=== PATIENT | male | born 1990 | race Caucasian/White ===

== ENCOUNTER 2019-11-10 11:24 | Outpatient (REF) | payer OTHER, SELFPAY ==
[2019-11-10 18:55] LABS: Abs Immature Grans 0.01 k/cumm (0.0-0.09); Absolute Basophil Count 0.04 k/cumm (0.0-0.2); Absolute Eosinophil Count 0.05 k/cumm (0.0-0.7); Absolute Lymphocyte Count 1.61 k/cumm (1.2-3.4); Absolute Monocyte Count 0.66 k/cumm (0.11-0.7); Absolute Neutrophil Count 5.12 k/cumm (1.2-6.7); Basophils % 0.5; Eosinophils % 0.7; HCT 44.9 % (40.0-50.0); HGB 14.8 g/dL (13.5-17.5); Immature Grans % 0.1 %; Lymphocytes % 21.5; Mean Corpuscular Hemoglobin 28.4 pg (27.0-33.0); Mean Platelet Volume 11.9 fL (8.0-11.0); Monocytes % 8.8; Neutrophils % 68.4; Platelet Count 254 x1000/uL (130-400); RBC 5.22 m/cumm (4.50-6.00); RBC Distribution Width 13.5 % (11.8-14.1); White Blood Cell Count 7.49 k/cumm (4.4-10.8)
[2019-11-10 19:08] LABS: TSH (W/Ref FT4) 1.09 uIU/mL (0.36-3.74)
[2019-11-11 15:42] LABS: CRP, High Sensitivity 3.76 mg/L (See Note)
[2019-11-13 14:11] LABS: ANA Interpretation Negative (Negative)
== END 2019-11-10 11:44 ==
LOC: NCHCN 11:24
PROVIDERS: PCP Family Medicine; Visit Provider Physician Assistant Medical
DX: I88.9 Nonspecific lymphadenitis, unspecified (principal)
CPT/HCPCS: 86141; 84443; 85025; 86038

== ENCOUNTER 2019-11-26 10:29 | Outpatient (REF) | payer OTHER, SELFPAY ==
[2019-11-26 19:09] LABS: Anion Gap 8.9 mmol/L (3-11); BUN 13 mg/dL (7-18); CO2 26.1 mmol/L (21.0-32.0); Calcium 9.2 mg/dL (8.5-10.1); Chloride 103 mmol/L (98-107); Creatine Kinase 291 U/L (39-308); Glucose 93 mg/dL (74-106); Potassium 4.2 mmol/L (3.5-5.1); Sodium 138 mmol/L (136-145)
[2019-11-26 19:41] LABS: ESR 17 mm/hr (0-15)
[2019-11-27 16:13] LABS: Rheumatoid Factor <8.6 IU/mL (<12.0)
[2019-11-30 18:57] LABS: Anaplasma phagocytophilum Negative (Negative); B. miyamotoi PCR Negative (Negative); Babesia divergens/MO-1 Negative (Negative); Babesia duncani Negative (Negative); Babesia microti Negative (Negative); Ehrlichia chaffeensis Negative (Negative); Ehrlichia ewingii/canis Negative (Negative); Ehrlichia muris eauclairensis Negative (Negative)
[2019-12-01 11:10] LABS: Lyme Ab w Rflx to Lyme Confirm Negative (Negative)
== END 2019-11-26 10:49 ==
LOC: NCHCN 10:29
PROVIDERS: PCP Family Medicine; Visit Provider Family Medicine
DX: I73.00 Raynaud's syndrome without gangrene (principal); M25.50 Pain in unspecified joint
CPT/HCPCS: 80048; 82550; 85652; 87798; 86431; 86618

== ENCOUNTER 2020-08-23 09:49 | Outpatient (CLI) | payer OTHER, SELFPAY ==
[2020-08-24 01:23] LABS: COVID-19 RT-PCR UVMMC Result Negative (Negative)
== END 2020-08-23 10:09 ==
PROVIDERS: PCP Family Medicine; Visit Provider Nurse Practitioner Family
DX: Z11.52 Encounter for screening for COVID-19 (principal)
CPT/HCPCS: U0003

== ENCOUNTER 2020-09-30 13:03 | Outpatient (REF) | payer OTHER, SELFPAY ==
[2020-10-03 15:27] LABS: Chlamydia Result Negative (Negative); GC Result Negative (Negative)
== END 2020-09-30 13:04 | disposition home or self-care (01) ==
LOC: NCHCN 13:03
PROVIDERS: PCP Family Medicine; Visit Provider Nurse Practitioner Family
DX: N50.811 Right testicular pain (principal)
CPT/HCPCS: 87491; 87591

== ENCOUNTER 2021-04-24 10:46 | Outpatient (CLI) | payer OTHER, SELFPAY ==
[2021-04-25 01:59] LABS: COVID-19 RT-PCR UVMMC Result Negative (Negative)
== END 2021-04-24 10:47 | disposition home or self-care (01) ==
LOC: LBO 11:03
PROVIDERS: PCP Family Medicine; Visit Provider Nurse Practitioner Family
DX: Z20.822 Contact with and (suspected) exposure to COVID-19 (principal)
CPT/HCPCS: U0003

== ENCOUNTER 2021-06-27 09:42 | Outpatient (CLI) | payer OTHER, SELFPAY ==
[2021-06-28 12:50] LABS: COVID-19 RT-PCR UVMMC Result Negative (Negative)
== END 2021-06-27 09:43 | disposition home or self-care (01) ==
LOC: LBO 09:43
PROVIDERS: PCP Family Medicine; Visit Provider Physician Assistant Medical
DX: Z20.822 Contact with and (suspected) exposure to COVID-19 (principal)
CPT/HCPCS: U0003

== ENCOUNTER 2022-09-26 11:12 | Outpatient (REF) | payer OTHER, SELFPAY ==
[2022-09-26 12:45] LABS: Abs Immature Grans 0.01 10^3/uL (0.0-0.06); Absolute Basophil Count 0.06 10^3/uL (0.0-0.2); Absolute Eosinophil Count 0.07 10^3/uL (0.0-0.7); Absolute Lymphocyte Count 1.11 10^3/uL (1.2-3.4); Absolute Monocyte Count 0.54 10^3/uL (0.1-0.8); Absolute Neutrophil Count 4.31 10^3/uL (1.2-6.7); Eosinophils % 1.1; HGB 14.4 g/dL (13.5-17.5); Immature Grans % 0.2; Lymphocytes % 18.2; MCHC 32.7 % (32.0-36.0); MCV 85 fL (80-95); MPV 11.3 fL (8.0-11.0); Monocytes % 8.9; Neutrophils % 70.6; Platelet Count 224 10^3/uL (130-400); RBC 5.15 10^6/uL (4.36-5.78); RDW 13.1 % (11.8-14.1); RDW-SD 40.6 fL
[2022-09-26 12:55] LABS: ALT 60 U/L (16-63); AST 30 U/L (15-37); Albumin 4.4 g/dL (3.4-5.0); Alkaline Phosphatase 87 U/L (46-116); Anion Gap 7.5 mmol/L (3-11); BUN 13 mg/dL (7-18); Bilirubin, Total 0.5 mg/dL (0.2-1.0); CO2 29.5 mmol/L (21.0-32.0); CREATININE 0.9 mg/dL (0.70-1.30); Calcium 9.2 mg/dL (8.5-10.1); Chloride 104 mmol/L (98-107); Estimated GFR 116.37 (mL/min/1.73m2); Glucose 88 mg/dL (74-106); Potassium 4.2 mmol/L (3.5-5.1); Sodium 141 mmol/L (136-145); Total Protein 8.3 g/dL (6.4-8.2)
== END 2022-09-26 11:13 | disposition home or self-care (01) ==
LOC: LBN 11:12
PROVIDERS: PCP Nurse Practitioner Adult Health; Visit Provider Physician Assistant
DX: R10.32 Left lower quadrant pain (principal)
CPT/HCPCS: 80053; 85025

== ENCOUNTER 2022-10-18 03:56 | Outpatient (CLI) | payer OTHER, SELFPAY ==
--- NOTE | 2022-10-18 07:45 | DI.RAD_ITS ---
Exam(s) XR CERVICAL SPINE COMP 4-5V EXAM: XR CERVICAL SPINE COMP 4-5V CLINICAL HISTORY: Assess c-spine bony alignment; +L facial pain,RADICULAR PAIN,R51.9,M54.10. TECHNIQUE: 2D digital imaging was performed. Eight images were obtained. AP, odontoid, lateral and b ilateral oblique images were obtained. COMPARISON: No exams were available for comparison FINDINGS: The odontoid is intact. The lateral masses are well aligned. There is straightening of the normal ce rvical lordosis. The vertebral bodies, disc spaces and posterior elements are well maintained. No a cute fracture or subluxation is present. No significant neural foraminal stenosis is present. The ce rvical thoracic junction is well maintained. The prevertebral soft tissues are unremarkable. Lung ap ices are clear. IMPRESSION: Unremarkable radiographs of the cervical spine. DATA REPOSITORY: RADIATION DOSE DELIVERED:
== END 2022-10-18 04:16 ==
LOC: DI 03:56
PROVIDERS: PCP Nurse Practitioner Adult Health; Visit Provider Nurse Practitioner Adult Health
DX: R51.9 Headache, unspecified (principal); M54.12 Radiculopathy, cervical region
CPT/HCPCS: 72050

== ENCOUNTER 2022-12-10 02:50 | Outpatient (CLI) | payer OTHER, SELFPAY ==
[2022-12-10 07:14] LABS: HCT 45.3 % (40.0-50.0); MCHC 33.1 % (32.0-36.0); MCV 88 fL (80-95); MPV 10.9 fL (8.0-11.0); Platelet Count 223 10^3/uL (130-400); RBC 5.18 10^6/uL (4.36-5.78); RDW 12.8 % (11.8-14.1); RDW-SD 40.9 fL; WBC 5.55 10^3/uL (4.4-10.8)
[2022-12-10 07:26] LABS: ESR 9 mm/hr (0-15)
[2022-12-10 08:47] LABS: ALT 49 U/L (16-63); AST 26 U/L (15-37); Alkaline Phosphatase 85 U/L (46-116); Anion Gap 8.6 mmol/L (3-11); BUN 12 mg/dL (7-18); Bilirubin, Total 0.6 mg/dL (0.2-1.0); CO2 30.4 mmol/L (21.0-32.0); CREATININE 1.1 mg/dL (0.70-1.30); Calcium 9.1 mg/dL (8.5-10.1); Calculated LDL 124 mg/dL (<100); Chloride 104 mmol/L (98-107); Cholesterol 177 mg/dL (<200); Estimated GFR 91.47 (mL/min/1.73m2); Folate 18.5 ng/mL (8.6-20.0); Glucose 106 mg/dL (74-106); HDL Cholesterol 39 mg/dL (40-60); Potassium 4.3 mmol/L (3.5-5.1); Sodium 143 mmol/L (136-145); TSH (W/Ref FT4) 1.07 uIU/mL (0.36-3.74); Total Protein 8.5 g/dL (6.4-8.2); Triglyceride 72 mg/dL (<150); Vitamin B12 490 pg/mL (193-986)
[2022-12-10 09:00] LABS: C-Reactive Protein 0.56 mg/dL (0.0-0.3); Creatine Kinase 126 U/L (39-308)
[2022-12-10 17:48] LABS: Rheumatoid Factor <8.6 IU/mL (<12.0)
[2022-12-10 17:50] LABS: Lab Add On Test DONE
[2022-12-10 18:33] LABS: Hemoglobin A1C 5.5 % (<5.7)
[2022-12-11 10:00] LABS: HIV-1/2 Ag & Ab Screen Negative (Negative)
[2022-12-11 10:17] LABS: Cyclic Citrullinated Peptide <2.5 U/mL (<5.0)
[2022-12-11 10:21] LABS: Hepatitis C Ab w Rflx HCV PCR Negative (Negative)
[2022-12-11 11:05] LABS: Lyme Ab w Rflx to Lyme Confirm Positive (Negative)
[2022-12-11 15:21] LABS: Lyme IgG Ab Negative (Negative); Lyme IgM Ab Negative (Negative)
[2022-12-13 23:25] LABS: Anaplasma phagocytophilum Negative (Negative); B. miyamotoi PCR Negative (Negative); Babesia divergens/MO-1 Negative (Negative); Babesia duncani Negative (Negative); Babesia microti Negative (Negative); Ehrlichia chaffeensis Negative (Negative); Ehrlichia ewingii/canis Negative (Negative); Ehrlichia muris eauclairensis Negative (Negative)
== END 2022-12-10 02:51 | disposition home or self-care (01) ==
PROVIDERS: PCP Nurse Practitioner Adult Health; Referring Provider Nurse Practitioner Adult Health; Visit Provider Nurse Practitioner Adult Health
DX: I73.00 Raynaud's syndrome without gangrene (principal); M25.50 Pain in unspecified joint; M79.10 Myalgia, unspecified site; Z11.4 Encounter for screening for human immunodeficiency virus [HIV]; Z11.59 Encounter for screening for other viral diseases; Z13.1 Encounter for screening for diabetes mellitus; Z13.220 Encounter for screening for lipoid disorders; Z83.2 Family history of diseases of the blood and blood-forming organs and certain disorders involving the immune mechanism; R73.01 Impaired fasting glucose
CPT/HCPCS: 36415; 80053; 80061; 82550; 85027; 85652; 86200; 86617; 86803; 87389; 87798; 82607; 82746; 83036; 84443; 86140; 86431; 86618

== ENCOUNTER 2023-04-24 09:22 | Outpatient (CLI) | payer OTHER, SELFPAY ==
[2023-04-29 14:36] LABS: Testosterone, Total 482 ng/dL (240-950)
== END 2023-04-24 09:23 | disposition home or self-care (01) ==
LOC: LBO 09:24
PROVIDERS: PCP Nurse Practitioner Adult Health; Visit Provider Urology
DX: R53.83 Other fatigue (principal); N50.812 Left testicular pain
CPT/HCPCS: 36415; 84403

== ENCOUNTER 2023-12-18 07:19 | Day surgery (SDC) | payer OTHER, SELFPAY ==
--- NOTE | 2023-12-17 20:24 | W.PM.DSUDISC ---
Date of service: 12/18/23 Time of Service: 11:05 Discharge Plan Disposition Patient Disposition: Home Condition: Good Discharge Details Reason For Visit: Bilateral inguinal hernia repair Attending Provider: Nathaniel Zamudio Primary Care Provider: Yadira Heller Home Meds and New Rx's Prescriptions: New tramadol 50 mg tablet 50 mg PO Q8H PRNQty: 12 0RF Rx Instructions: Take 1 to 2 tablets by mouth as needed for more intense pain Continued loratadine 10 mg tablet 10 mg PO DAILY PRN (Reason: allergy symptoms) Qty: 60 0RF Rx Instructions: Allergy symptoms Discharge Instructions Instructions: Inguinal Hernia Repair (GEN) Additional Instructions: Tray, we were able to repair your hernia today just like we talked about. As expected, the hernia on the right was a little bit larger than the left, but implantation of the mesh on both sides went very smoothly. As we talked about beforehand, expect to have pain over the surgical sites, and perhaps down into your scrotum over the next few days. He typically gets a little worse after you get home as some of the nerve block wears off, but should start to improve thereafter. Ice packs over the area can be quite helpful. You should alternate Tylenol and ibuprofen [id number], and use the prescription for tramadol if you need that for more intense pain. Do not be alarmed if you develop bruising over the incision sites, that extends down into the scrotum. That is extremely common. You can also have a fair amount of swelling around the penis and the testicles when both sides are operated on that same time. Hopefully this will not affect you too much, but I do see it very frequently. If you notice a lot of swelling, wearing a supportive underwear or jockstrap, and trying to get off your feet from time to time laying mostly flat should help with the swelling. If you need anything at all or have any questions at any time, please do not hesitate to ask. Otherwise I look forward to seeing you in the office. 1. Resume all of your medications. 2. Alternate heating pads and ice packs as needed for pain. 3. Alternate over the counter tylenol and ibuprofen every 6 hours for 2 days, then switch to as needed. Use tramadol if needed for more severe pain. 4. Leave bandages in place for 24 hours, then remove. 5. Shower with warm soapy water. Pat dry. Use a bandaid if needed to protect your clothing. 6. No soaking or tub baths until I see you in the office. 7. No heavy lifting until I see you in the office. 8. Call the office (or go directly to the emergency room after hours) if you notice any of the following: Develop chills (warm to touch), or if you have a thermometer and your temperature is above 101 Difficulty breathing or difficultly swallowing Persistent vomiting Any bleeding ? exceeding one tablespoon 9. Call your physician if the site where your intravenous was started becomes red, swollen, painful, and warm to touch. Referrals: Nathaniel Zamudio MD [ [facility] STAFF PHYSICIAN] - Activity:: no heavy lifting Remove Dressings/Wound Care:: 24 hours Shower/Bathe:: 24 hours Diet:: As Tolerated Discharge Orders Discharge Orders: Discharge Order (Routine); Ordered 12/17/23 Ordered By: Nathaniel Zamudio DS: Diagnosis Discharge Diagnosis (1) Bilateral inguinal hernia: Status: Acute Asessment and Plan: Postoperative follow-up care in the office
--- NOTE | 2023-12-17 20:28 | W.PREOPHP ---
Assessment and Plan Assessment and plan (1) Bilateral inguinal hernia: Status: Acute Assessment and plan: We reviewed the plan for open bilateral inguinal hernia repairs with implantation of permanent mesh once again today. He has no other questions. We can proceed as planned. History of Present Illness History of Present Illness Chief Complaint: inguinal hernias Narrative: Tray is 33 years old. He has been experiencing intermittent groin pain for the past year and a half. It actually started on the left side, but more recently has become much more pronounced and noticeable on the right side. He underwent an ultrasound that confirmed the presence of a right-sided inguinal hernia. On physical exam, there is evidence of left-sided hernia as well. He is interested in open bilateral inguinal hernia repairs. Since his last office visit he has been doing pretty well. He has had a little more pain, especially with prolonged vehicle travel on the right side. Otherwise there is been no other significant interval changes to the history and the physical exam. PFSH All Active Problems Bilateral inguinal hernia (Acute) Inguinal hernia of right side without obstruction or gangrene (Acute) Right groin pain (Acute) Left varicocele (Acute) Fatigue (Acute) Recurrent canker sores (Acute) Impaired fasting glucose (Acute ~11/2022) A1C 5.5% Family history of autoimmune disorder (Acute) Polyarthralgia (Acute) Raynaud's phenomenon (Acute ~10/2019) ?--without discoloration Myalgia (Acute) Medical History Pilonidal cyst Managed nonsurgical at [facility] with Hyacinth Ivy (drained) Epididymitis Dysuria Surgical History [place] teeth removed (~2017) Dr. Madsen Family History Father Asthma Glaucoma Paternal Grandmother Cancer Diabetes Maternal Uncle Hypertension Rheumatoid arthritis Maternal Aunt Lupus Maternal Grandmother Leukemia Mother CREST syndrome Social History Smoking/Tobacco Use Status: Never Smoking risk assessment performed?: Yes Alcohol Intake: current Alcohol Intake frequency: a few times a week Drug use: Never Substance use type: does not use Adopted: No Caregiver/Support person: No Foster care: No Household members: spouse Housing: house Number of Children: 0 number of grandchildren: 0 Communication Needs: Corrective Lenses Education Level: high school Do you need help understanding health information?: Never 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 [employer] Pets and animals: Yes Pets and animals: cat(s) Sexually active: Yes Do you think of yourself as: straight/heterosexual Current gender identity: male What is your relationship status?: How often do you talk on the phone with friends or family?: three or more times per week How often do you get together with friends or relatives?: twice per week Do you belong to any clubs or organized social groups?: no Panel score (0-1 are the most socially isolated patients): 2 What type of physical activity do you participate in: regular exercise Frequency: daily Shea/Synagogue: None Special shea needs: No Seatbelt use: always Helmet use: Yes Helmet use: always Drive intox or ride w/intox school bus driver/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 assistant: No Do you feel safe at home: Yes Do you feel safe in your relationship?: Yes Meds Allergies and Home Medications Allergies Allergy/AdvReac Type Severity Reaction Status Date / Time No Known Allergies Allergy Verified 12/18/23 07:37 Home Medications Medication Instructions Recorded Confirmed Type loratadine 10 mg tablet 10 mg PO DAILY PRN allergy 09/19/22 12/18/23 Rx symptoms #60 tabs Exam Const General: cooperative, healthy appearing and not in acute distress Neck Neck: normal visual inspection, no lymphadenopathy and supple Thyroid: thyroid normal Resp Effort & Inspection: normal respiratory effort Auscultation: clear to auscultation bilaterally Cardio Jugular venous pressure: no JVD Rate: regular rate Rhythm: regular rhythm Heart Sounds: S1 normal and S2 normal GI Inspection: normal to inspection Palpation: soft, no guarding, hernia (Bilateral inguinal) and nontender Percussion: normal to percussion Auscultation: normal bowel sounds Neuro General: patient alert, patient awake and patient oriented x3 Psych Appearance: grossly normal
--- NOTE | 2023-12-17 20:28 | W.PM.OP ---
Date of service: 12/18/23 Time of Service: 11:10 Operative Note Operative Note DATE OF PROCEDURE: 12/18/23 PRE-OP DIAGNOSIS: Bilateral inguinal hernia POST-OP DIAGNOSIS: same PROCEDURE: Open bilateral inguinal hernia repairs with permanent mesh SURGEON: Nathaniel Zamudio DISTRIBUTION SPECIALIST: Qing Gonsalez ANESTHESIA TYPE: Local By Surgeon, General LMA/ETT and Other (Bilateral inguinal tap blocks) Refer to Anesthesia Record ESTIMATED BLOOD LOSS: 25 PATHOLOGY: none sent COMPLICATIONS: None Patient was transported to: PACU Patient's condition: stable Implants: Bard PerFix light mesh plug and patch bilaterally Indications: Tray is a 33-year-old male with symptomatic bilateral inguinal hernias Findings: Bilateral indirect inguinal hernias Procedure Description: I began by confirming the bilateral nature of the operation with the patient. Both groins were marked. Next, after induction of general anesthesia bilateral inguinal tap blocks were performed under real-time ultrasound guidance by the anesthesia team. Both groins were then prepped and draped. A towel was used to block off the left side this I elected to begin on the right. I began by making an oblique incision over the right inguinal region. I dissected down through the skin to the deep fascia. Next, I incised the fascia along the length of the inguinal canal to the external ring. I then carefully identified the ilioinguinal nerve and . Once this was complete, I bluntly dissected the shelving edge of the inguinal ligament down towards the pubic tubercle. Here, I encircled all cord structures with a [place] drain. Next, I began dissecting the specific cord structures. Great care was taken to spare the vas deferens and the blood supply to the testicle. Next, I isolated the hernia sac from the other inguinal structures. I reduced it back to its normal anatomic position. This was an indirect inguinal hernia. I then used a large PerFix light mesh plug to obliterate the defect at the internal ring. I fixed in place with interrupted Prolene stitches. Next, I buttressed the posterior floor of the inguinal canal with a large mesh patch. I started by fixing it to the pubic tubercle. Next, I used Prolene sutures to affix it to the shelving edge of the inguinal ligament and the conjoined tendon. Laterally I tacked it to the internal oblique fascia and reconstructed an internal ring without any strain on the cord structures. Once this was complete, I irrigated the surgical field. It appeared hemostatic. I then closed the anterior portion of the fascia to reconstruct the front wall of the inguinal canal. I did this with interrupted Vicryl stitches. Once again, I irrigated the surgical field and inspected for hemostasis. Finally, I approximated the superficial fascia and the deep layers of the skin with absorbable suture. Skin was closed with running subcuticular stitches. The right side was then covered, and I turned my attention to the left groin. I mirrored the incision from the right side, and dissected down to the fascia as described above. Inguinal canal was opened along its length to the external ring. Again, in a fashion identical to the right side, I dissected out the cord structures, and then an indirect inguinal hernia on this side as well. This was also reduced with closure of the internal ring using a large PerFix light plug. The plug was affixed in place using the same technique as the right. Similarly, a large mesh patch was tailored to size, and secured in place with running Prolene suture. Again, the site was examined and appeared hemostatic. The canal was reconstructed with running Vicryl sutures, and the skin was then closed in multiple layers as described on the right side. Bandages were then applied both sides, the patient was allowed to wake from anesthesia and transferred to the recovery unit.
[2023-12-18] VITALS (10 sets, daily range): BP systolic 99–158; BP diastolic 40–89; PULSE 61–81; RESP 12–20; TEMP 36.3–36.7; O2SAT 94–99; BMI 35.9
--- NOTE | 2023-12-18 06:21 | ANES.PREOP_ITS ---
General Info Date of Service Date Performed: 12/18/23 Height: 5 ft 10 in Weight: 113.398 kg Body Mass Index (BMI): 35.9 Surgical Procedure: Operation Date: 12/18/23 09:55 Proposed Procedure Side Surgeon p Herniorrhaphy Inguinal w/Mesh Bilateral Nathaniel Zamudio MD Meds Allergies and Home Medications Allergies Allergy/AdvReac Type Severity Reaction Status Date / Time No Known Allergies Allergy Verified 12/18/23 07:37 Home Medication Medication Instructions Recorded loratadine 10 mg tablet 10 mg PO DAILY PRN allergy 09/19/22 symptoms #60 tabs Current Visit Medications: Current Medications Generic Name Dose Route Start Last Admin Trade Name Freq PRN Reason Stop Dose Admin Acetaminophen 1,000 mg 12/18/23 06:00 Acetaminophen 500 Mg Tab PO 12/18/23 23:59 PREOP DANYA Celecoxib 200 mg 12/18/23 06:00 Celecoxib 200 Mg Cap PO 12/18/23 23:59 PREOP DANYA Gabapentin 600 mg 12/18/23 06:00 Gabapentin 300 Mg Cap PO 12/18/23 23:59 PREOP DANYA Hydromorphone HCl 0.2 mg 12/17/23 20:29 Hydromorphone 2 Mg/Ml Syr IVP 01/16/24 20:28 Q1H PRN PRN Ringer's Solution 1,000 mls @ 80 mls/hr 12/18/23 06:00 IV 12/18/23 23:59 INFUSION DANYA Cefazolin Sodium/Dextrose 2 gm in 50 mls @ 100 mls/hr 12/18/23 06:00 Ancef Duplex IVPB 12/18/23 23:59 PREOP DANYA IV Miscellaneous Supplies 1 each 12/18/23 06:00 Iv Access IV 12/18/23 23:59 DIRECTED DANYA Sodium Chloride 0 ml 12/18/23 06:00 Normal Saline Flush 10 Ml Syr IV 12/18/23 23:59 PRN PRN Sodium Chloride 0 ml 12/18/23 06:00 Normal Saline 10 Ml Vial IJ 12/18/23 23:59 DIRECTED PRN Sterile Water 0 ml 12/18/23 06:00 Water,Injection,Sterile 10 Ml Vial IJ 12/18/23 23:59 DIRECTED PRN Tramadol HCl 100 mg 12/17/23 20:29 Tramadol 50 Mg Tab PO 01/16/24 20:28 Q6H PRN PRN Pain PFSH Active Problems Active Problems: Problem Status Onset Code Bilateral inguinal hernia K40.20 Inguinal hernia of right side without obstruction or gangrene K40.90 Right groin pain R10.31 Left varicocele I86.1 Fatigue R53.83 Recurrent canker sores K12.0 Impaired fasting glucose ~11/2022 R73.01 Family history of autoimmune disorder Z83.2 Polyarthralgia M25.50 Raynaud's phenomenon ~10/2019 I73.00 Myalgia M79.10 Medical History Medical History Pilonidal cyst Managed nonsurgical at [facility] with Hyacinth Ivy (drained) Epididymitis Dysuria Surgical History Surgical History [place] teeth removed (~2016) Dr. Madsen Tobacco Smoking/Tobacco Use Status: Never Passive smoking exposure: No Alcohol Alcohol Intake: current Alcohol intake frequency: a few times a week Substance Use Substance use: Never Substance use type: does not use Vital Signs and Lab Results Vital Signs Most Recent Vital Signs in EMR: Temp Pulse Resp BP Pulse Ox 36.6 C 76 18 158/89 H 99 12/18/23 07:39 12/18/23 07:39 12/18/23 07:39 12/18/23 07:39 12/18/23 07:39 Lab Results Blood Type / Crossmatch: No Data to Display Complete Blood Count: No Data to Display Complete Metabolic Panel: No Data to Display Liver Function Panel: No Data to Display Coagulation Panel: No Data to Display Cardiac Panel: No Data to Display Arterial Blood Gas: No Data to Display Venous Blood Gas: No Data to Display Pancreas Panel: No Data to Display Thyroid Panel: No Data to Display Infectious Disease: No Data to Display Blood Cultures: No Data to Display Toxicology Panel: No Data to Display Anesthesia Assessment and Plan Anesthesia History Personal History: No History of Anesthesia Complications Family History: No Family History of Anesthesia Complications Exercise Tolerance Exercise Tolerance: Metabolic Equivalents>4 Cardiac & Pulmonary Exam Cardiac Exam: Normal S1/S2 Heart Sounds Pulmonary Exam: Clear Bilateral Breath Sounds Implantable Cardiac Device Does patient have a Pacemaker or an ICD?: No Airway Exam Known Difficult Airway: No Mallampati Class: 3 Mouth Opening: Normal (> 3cm) Thyromental Distance: Greater than 3 cm Neck Range of Motion: Full ROM Neck Circumference: Thick Teeth Condition: Normal Dentition ASA Classification ASA Score: ASA 2 Emergency Case?: No NPO Status NPO Status: NPO Clears >2 hours, Solids >8 hours Anesthesia Plan Resuscitation Status: Full Code Anesthesia Technique: General Anesthesia Airway Planned: LMA Pain Management: Surgeon and patient request nerve block Monitors Used: Standard Monitors Preoperative Comments:: 33 yo male for bilateral open inguinal hernia repairs. Sig PMHx: Raynaud's (mostly feet in the winter), polyarthralgia, never smoker, occ etoh.
[2023-12-18] MEDS: Acetaminophen 500 MG TAB 1000 MG PO (07:54)
[2023-12-18] MEDS: Celecoxib 200 MG CAP PO (07:54)
[2023-12-18] MEDS: Gabapentin 300 MG CAP 600 MG PO (07:54)
[2023-12-18] MEDS: Lactated Ringers 1,000 ML 80 ML IV (08:22)
[2023-12-18] MEDS: ceFAZolin 2 GM/50 ML BAG IVPB (09:11)
--- NOTE | 2023-12-18 09:38 | W.ANESNERVE ---
Nerve Block Single Injection Procedure Date and Time Date Performed: 12/18/23 Procedure Start: 09:20 Location Where Procedure Performed Procedure Location: Operating Room Procedure Stop: 09:30 Reason Performed: Postoperative Analgesia Requesting Provider: Nathaniel Zamudio Timeout Performed Timeout Performed: No Monitoring Used ECG, Blood Pressure, SpO2 and ETCO2 Sterility Sterility: Hand Hygiene, Surgical Cap, Surgical Mask, Sterile Gloves and Chlorhexidine Sedation Given During Procedure Sedation Given (Indicate Dose Given): No Sedation given Patient Mental Status Patient Mental Status: Performed under general anesthesia Nerve Block 1st Nerve Block: Laterality: Bilateral Block Type: TAP Bilateral Ultrasound Image Saved?: Yes Needle / Catheter Used: 100mm SonoPlex II Local Anesthetic Bolus (Indicate Dose Given): Bupivacaine 0.25% Dose:: 30 mL Additives (Indicate Dose Given): Epinephrine to make 1:200,000 (5mcg/ml) Dose:: 150 mcg and Precedex Dose:: 40 mcg Ultrasound: Sterile probe cover and gel used Nerve Stimulator: Not Used Paresthesia: None Procedure Tolerated: No Complications Procedure Outcome: Successful Performed By: Main Ren
[2023-12-18] MEDS: Bupivacaine 0.5% Pres-Free W/EPI 30 ML VIAL (09:48)
--- NOTE | 2023-12-18 11:46 | W.ANESPOSTOP ---
Postoperative Evaluation Date, Time and Location Date Performed: 12/18/23 Time Performed: 11:46 Patient Location: PACU Vital Signs Most Recent Imported Vital Signs: Most Recent Vital Signs Temp Pulse Resp BP Pulse Ox 36.6 C 65 20 100/41 L 98 12/18/23 11:38 12/18/23 11:38 12/18/23 11:38 12/18/23 11:38 12/18/23 11:38 Pain Score Most Recent Pain Score: Most Recent Pain Score Pain Level 0 12/18/23 07:39 Assessment Mental Status: Arousable with meaningful communication Airway and Respiratory Function: Patent airway with normal (patient baseline) respiratory exam Cardiovascular Function: Hemodynamically Stable Hydration Status: Adequately Hydrated Nausea & Vomiting: No Nausea or Vomiting Pain: Pain is tolerable per patient Peripheral Nerve Block: Regional nerve block not resolved at time of post operative discharge
[2023-12-18] MEDS: traMADol 50 MG TAB 100 MG PO (12:50)
== END 2023-12-18 16:53 | disposition home or self-care (01) ==
LOC: SUR 07:20
PROVIDERS: PCP Nurse Practitioner Adult Health; Visit Provider Surgery
PROC: (CPT 49505; principal; 2023-12-18 09:45)
DX: K40.20 Bilateral inguinal hernia, without obstruction or gangrene, not specified as recurrent (principal)
CPT/HCPCS: 49505; 76942; C1781; J0171; J0665; J0690; J1100; J1805; J1885; J2001; J2250; J2405; J2704; J3475

== ENCOUNTER → 2024-01-06 16:42 | Outpatient (CLI) | payer OTHER, SELFPAY ==
--- NOTE | 2024-01-06 15:15 | DI.RAD_ITS ---
Exam(s) XR CHEST 2V PA LATERAL EXAM: XR CHEST 2V PA LATERAL CLINICAL HISTORY: evalutae pathology R05.9 COUGH. TECHNIQUE: 2D digital imaging was performed. COMPARISON: No exams were available for comparison FINDINGS: 2 views: Heart size is normal. The mediastinum is not widened. Lungs are clear. No infiltrates nor pleural effusions. IMPRESSION: No acute pulmonary findings. DATA REPOSITORY: RADIATION DOSE DELIVERED:
== END ==
PROVIDERS: PCP Nurse Practitioner Adult Health; Visit Provider Nurse Practitioner Family
DX: R05.8 Other specified cough (principal)
CPT/HCPCS: 71046

== ENCOUNTER 2024-03-23 09:03 | Emergency (ER) | payer OTHER, SELFPAY ==
[2024-03-23] VITALS (28 sets, daily range): BP systolic 119–157; BP diastolic 72–92; PULSE 63–87; RESP 14–24; TEMP 36.5–36.8; O2SAT 96–100
--- NOTE | 2024-03-23 09:00 | RT.EKG_ITS ---
APPROVED REPORT Exam: Resting ECG Reason for Exam: palpitations Patient Location: E HR:89 bpm ECG Measurements Heart Rate 89 AXIS LA 141 P 36 QRSd 89 QRS 23 QT 360 T 42 QTc 438 Conclusion Sinus rhythm...normal P axis, V-rate 60- 99 ST elev, probable normal early repol pattern...ST elevation, age<55 sinus nromal axis, J point early repol
--- NOTE | 2024-03-23 09:21 | ED.GENADUL_ITS ---
Discharge Plan Disposition Patient Disposition: Home Condition: Improving Discharge Details Chief Complaint: Palpitatns Clinical Impression: Heart palpitations Primary Care Provider: Yadira Heller ED Provider: Garrett Espinal Home Meds and New Rx's Prescriptions: No Action fluticasone propion-salmeterol [Advair Diskus] 250-50 mcg/dose blister with device 1 inh inhalation BID Qty: 60 1RF Rx Instructions: Rinse after use loratadine 10 mg tablet 10 mg PO DAILY PRN (Reason: allergy symptoms) Qty: 60 0RF Rx Instructions: Allergy symptoms albuterol sulfate 90 mcg/actuation HFA aerosol inhaler 2 puff inhalation Q6H PRN (Reason: shortness of breath or wheezing) Qty: 6.7 0RF (DME) Aerochamber MV Spacer See Rx Instructions .Route Qty: 1 0RF Rx Instructions: As directed Discharge Instructions Instructions: Palpitations Additional Instructions: Please follow-up with cardiology and your primary care physician. Cardiology team will be arranging Holter monitor. Return to the emergency department for any worsening symptoms HPI General Date/Time Provider Initiated Documentation: 03/23/24 09:13 . HPI Narrative: 34-year-old male presents with increased palpitations some chest pressure sensation and shortness of breath over the last couple of weeks. Has been initiated on fluticasone and albuterol for suspected asthma. Patient did have a case of bronchitis following a hernia surgery within the last couple of months. Denies leg pain or swelling. Denies history of coronary disease or thromboembolic disease. Related Data Home Medications ?Medication ?Instructions ?Recorded ?Confirmed loratadine 10 mg tablet 10 mg PO DAILY PRN allergy 09/19/22 03/23/24 symptoms #60 tabs albuterol sulfate 90 mcg/actuation 2 puff inhalation Q6H PRN 01/06/24 03/23/24 aerosol inhaler shortness of breath or wheezing #6.7 grams inhalational spacing device #1 ea 01/06/24 03/23/24 (Aerochamber MV spacer) fluticasone 250 mcg-salmeterol 50 1 inh inhalation BID #60 ea 03/19/24 03/23/24 mcg/dose blistr powdr for inhalation (Advair Diskus) Previous Rx's ?Medication ?Instructions ?Recorded loratadine 10 mg tablet 10 mg PO DAILY PRN allergy 09/19/22 symptoms #60 tabs albuterol sulfate 90 mcg/actuation 2 puff inhalation Q6H PRN 01/06/24 aerosol inhaler shortness of breath or wheezing #6.7 grams inhalational spacing device #1 ea 01/06/24 (Aerochamber MV spacer) fluticasone 250 mcg-salmeterol 50 1 inh inhalation BID #60 ea 03/19/24 mcg/dose blistr powdr for inhalation (Advair Diskus) Allergies Allergy/AdvReac Type Severity Reaction Status Date / Time No Known Allergies Allergy Verified 03/23/24 09:07 General Stated Complaint: Palpitatns LEYDA: 3 Exam Narrative Exam Narrative: Alert oriented interactive Resting comfortably no acute distress Lungs clear bilaterally speaking full sentences No peripheral edema Alert oriented moving all extremities no focal deficits Course Vital Signs Vital signs: Vital Signs Temperature 36.5 C 03/23/24 09:05 Pulse 87 03/23/24 09:05 Respiratory Rate 18 03/23/24 09:05 Blood Pressure 157/92 H 03/23/24 09:05 Pulse Oximetry 99 03/23/24 09:05 Temperature 36.5 C 03/23/24 09:05 Temperature Source Skin 03/23/24 09:05 Pulse 87 03/23/24 09:05 Respiratory Rate 18 03/23/24 09:05 Respiratory Effort Normal, Non-Labored 03/23/24 09:08 Blood Pressure 157/92 H 03/23/24 09:05 Blood Pressure Position Sitting 03/23/24 09:05 Pulse Oximetry 99 03/23/24 09:05 Oxygen Delivery Method Room Air 03/23/24 09:05 Oxygen Flow Rate 0 03/23/24 09:05 Pain Level 0 03/23/24 09:05 Medical Decision Making 34-year-old male presents with increased palpitations some chest pressure sensation and shortness of breath over the last couple of weeks. Has been initiated on fluticasone and albuterol for suspected asthma. Patient did have a case of bronchitis following a hernia surgery within the last couple of months. Denies leg pain or swelling. Denies history of coronary disease or thromboembolic disease. Patient felt his pulse earlier and felt a pause and slower rhythm than normal. Consider symptomatic PVCs versus PACs versus PE lower suspicion for myocarditis pericarditis lower suspicion for ACS lower suspicion for malignant arrhythmia however given persistent symptomatology will obtain basic labs troponin BNP D-dimer magnesium TSH if D-dimer is negative will obtain chest x-ray if D-dimer is possible obtain CTA of chest. Patient is hemodynamically stable afebrile nontoxic not hypoxic not tachypneic; given no wheezes cough or fever will not initiate albuterol or dexamethasone 13: 19 patient resting really no acute distress. 2 troponin negative. X-ray clear labs unremarkable. Hemodynamically stable. Asymptomatic. Arranging cardiology follow-up and Holter monitor acquisition. Home care instructions and return precautions given Quality:SDOH Health Related Social Needs: No Data to Display [facility] All Active Problems (Updated 03/23/24 @ 13:20 by Garrett Espinal MD) Heart palpitations (Acute) Bilateral inguinal hernia (Acute) Inguinal hernia of right side without obstruction or gangrene (Acute) Right groin pain (Acute) Left varicocele (Acute) Fatigue (Acute) Recurrent canker sores (Acute) Impaired fasting glucose (Acute ~11/2022) A1C 5.5% Family history of autoimmune disorder (Acute) Polyarthralgia (Acute) Raynaud's phenomenon (Acute ~10/2019) ?--without discoloration Myalgia (Acute) Medical History Pilonidal cyst Managed nonsurgical at [facility] with Hyacinth Ivy (drained) Epididymitis Dysuria Surgical History S/P bilateral inguinal hernia repair (~12/18/23) open [place] teeth removed (~2016) Dr. Madsen Family History Father Asthma Glaucoma Paternal Grandmother Cancer Diabetes Maternal Uncle Hypertension Rheumatoid arthritis Maternal Aunt Lupus Maternal Grandmother Leukemia Mother CREST syndrome Social History Smoking/Tobacco Use Status: Never Smoking risk assessment performed?: Yes Alcohol Intake: current Alcohol Intake frequency: a few times a week Drug use: Never Substance use type: does not use Adopted: No Caregiver/Support person: No Foster care: No Household members: spouse Housing: house Number of Children: 0 number of grandchildren: 0 Communication Needs: Corrective Lenses Education Level: high school Do you need help understanding health information?: Never current occupation: [employer] Pets and animals: Yes Pets and animals: cat(s) Sexually active: Yes Do you think of yourself as: straight/heterosexual Current gender identity: male What is your relationship status?: How often do you talk on the phone with friends or family?: three or more times per week How often do you get together with friends or relatives?: twice per week Do you belong to any clubs or organized social groups?: no Panel score (0-1 are the most socially isolated patients): 2 What type of physical activity do you participate in: regular exercise Frequency: daily Shea/Latter Day: None Special shea needs: No Seatbelt use: always Helmet use: Yes Helmet use: always Drive 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
[2024-03-23 10:00] LABS: Abs Immature Grans 0.01 10^3/uL (0.0-0.06); Absolute Basophil Count 0.07 10^3/uL (0.0-0.2); Absolute Eosinophil Count 0.05 10^3/uL (0.0-0.7); Absolute Lymphocyte Count 1.15 10^3/uL (1.2-3.4); Absolute Neutrophil Count 4.47 10^3/uL (1.2-6.7); Basophils % 1.1 %; Eosinophils % 0.8 %; HCT 40.7 % (40.0-50.0); HGB 13.1 g/dL (13.5-17.5); Immature Grans % 0.2 %; Lymphocytes % 18.4 %; MCH 28.5 pg (27.0-33.0); MCHC 32.2 % (32.0-36.0); MCV 89 fL (80-95); MPV 11.1 fL (8.0-11.0); Neutrophils % 71.5 %; Platelet Count 215 10^3/uL (130-400); RBC 4.59 10^6/uL (4.36-5.78); RDW-SD 42.6 fL; WBC 6.25 10^3/uL (4.4-10.8)
[2024-03-23 10:15] LABS: PTT Activated 30.1 sec (23.6-32.8); Prothrombin Time 10.1 sec (9.1-11.1)
[2024-03-23 10:26] LABS: ALT 40 U/L (16-63); AST 24 U/L (15-37); Albumin 3.8 g/dL (3.4-5.0); Alkaline Phosphatase 75 U/L (46-116); Anion Gap 6.4 mmol/L (3-11); BUN 9 mg/dL (7-18); Bilirubin, Total 0.45 mg/dL (0.2-1.0); CO2 27.6 mmol/L (21.0-32.0); Calcium 9.2 mg/dL (8.5-10.1); Chloride 104 mmol/L (98-107); Estimated GFR 101.28 (mL/min/1.73m2); Glucose 90 mg/dL (74-106); Magnesium 1.8 mg/dL (1.8-2.4); NT-proBNP 50 pg/mL (<300); Potassium 4.2 mmol/L (3.5-5.1); Sodium 138 mmol/L (136-145); TSH (W/Ref FT4) 1.15 uIU/mL (0.36-3.74); Total Protein 7.9 g/dL (6.4-8.2); Troponin I < 50 ng/L (< or =60)
[2024-03-23 10:35] LABS: D-Dimer 286 ng/mlFEU (<500)
--- NOTE | 2024-03-23 11:30 | DI.RAD_ITS ---
Exam(s) XR CHEST 2V PA LATERAL EXAM: XR CHEST 2V PA LATERAL CLINICAL HISTORY: chest tightness. TECHNIQUE: 2D digital imaging was performed. COMPARISON: CR XR CHEST 2V PA LATERAL from 01/06/2024 FINDINGS: 2 views: Heart size is upper normal. The mediastinum is not widened. Lungs are clear. No infiltrates nor pleural effusions. IMPRESSION: No acute pulmonary findings. DATA REPOSITORY: RADIATION DOSE DELIVERED:
[2024-03-23 13:12] LABS: Troponin I < 50 ng/L (< or =60)
== END 2024-03-23 13:28 | disposition home or self-care (01) ==
PROVIDERS: Emergency Provider Emergency Medicine; PCP Nurse Practitioner Adult Health
DX: R06.02 Shortness of breath (principal); R00.2 Palpitations; R07.89 Other chest pain
CPT/HCPCS: 36415; 80053; 93005; 99285; 71046; 83735; 83880; 84443; 84484; 85025; 85379; 85610; 85730; 93010; 99284

== ENCOUNTER 2024-03-23 13:30 | Outpatient (RCR) | payer OTHER, SELFPAY ==
--- NOTE | 2024-03-23 07:45 | HOLTER_ITS ---
APPROVED REPORT Conclusion This is a 48-hour Holter monitor Rhythm throughout was sinus with an average heart rate of 78. Minimum was 52, maximum 133 There were very rare isolated atrial and ventricular ectopic beats There was no atrial fibrillation, no high-grade AV block, no pauses greater than 3 seconds Reported symptoms had no correlation to any dysrhythmia
== END 2024-03-28 23:59 | disposition home or self-care (01) ==
LOC: CARDOPNVT 13:30
PROVIDERS: PCP Nurse Practitioner Adult Health; Visit Provider Internal Medicine Cardiovascular Disease
DX: R00.2 Palpitations (principal)
CPT/HCPCS: 93225; 93226

== ENCOUNTER 2024-03-26 05:25 | Outpatient (CLI) | payer OTHER, SELFPAY ==
[2024-03-26] MEDS: Methacholine 100 MG VIAL IH (14:46)
[2024-03-26] MEDS: Inhaler, Assist Device 1 EACH MC (14:47)
[2024-03-26] MEDS: Albuterol HFA 18 GM 200 PUFF INH IH (14:47)
--- NOTE | 2024-03-26 15:57 | W.PFT ---
Date of service: 03/26/24 Time of Service: 14:00 Pulmonary Function Test Result Requesting Provider Yadira Louis Indications: Asthma Impression Spirometry normal FEV1/FVC and normal FEV1 95%. Normal flow volume loop. Methacholine challenge Patient demonstrated good to 21% decrease after 1 mg/mL of methacholine. Impression positive study. Clinical Correlation therefore is recommended.
== END 2024-03-26 05:26 | disposition home or self-care (01) ==
LOC: RT 05:25
PROVIDERS: PCP Nurse Practitioner Adult Health; Visit Provider Nurse Practitioner Adult Health
DX: R06.02 Shortness of breath (principal)
CPT/HCPCS: 00123; 94060; 94070; J7674

== ENCOUNTER 2024-05-25 15:20 | Outpatient (CLI) | payer OTHER, SELFPAY ==
--- NOTE | 2024-05-25 15:15 | RT.EKG_ITS ---
APPROVED REPORT Exam: Resting ECG Reason for Exam: atypical chest pain Patient Location: O HR:78 bpm ECG Measurements Heart Rate 78 AXIS [place] 140 P 48 QRSd 90 QRS 34 QT 365 T 48 QTc 416 Conclusion Sinus rhythm...normal P axis, V-rate 50- 99 Normal Electrocardiogram
== END 2024-05-25 15:21 | disposition home or self-care (01) ==
LOC: DI.KIM 15:21
PROVIDERS: PCP Nurse Practitioner Adult Health; Visit Provider Nurse Practitioner Adult Health
DX: R07.89 Other chest pain (principal); J45.40 Moderate persistent asthma, uncomplicated
CPT/HCPCS: 93010

== ENCOUNTER 2024-06-01 00:56 | Outpatient (CLI) | payer OTHER, SELFPAY ==
--- NOTE | 2024-06-01 06:00 | ETT_ITS ---
APPROVED REPORT Exam: Exercise Treadmill Patient Location: Out-Patient Room/Bed: Stress Nurse: Any Villa RN Ordering Provider:JO ANNKRISTOFER DACOSTA, Contact Number: [phone] BMI: 34.86 Baseline Rhythm: Sinus Rhythm Indications: atypical chest pain Medical History Medical History: asthma, anxiety, heart palpitations Cardiac Medications: albuterol sulfate, loratadine, spiriva, fluticasone Allergies: No known drug allergies Cardiac Risk Factors: family hx, asthma Previous Cardiac Procedures: none Pretest Chest Pain Characteristics: No chest pain Exercise History: Physically active Physical Disabilities: none Lung Sounds: Clear to auscultation Heart Sounds: Regular Stress Test Details Test: Exercise stress testing was performed using a Simon protocol. Rest Stress HR Resting HR Supine: 77 bpm Max Heart Rate (APMHR): 186 bpm Resting HR Standin bpm Target HR (85% APMHR): 158 bpm Max HR Achieved: 162 bpm % of APMHR: 87 Recovery HR: 92 bpm HR response to stress: Normal HR response to stress BP Resting BP Supine: 142/98 mmHg Resting BP Standin/98 mmHg Max BP: 170/96 mmHg Recovery BP: 114/82 mmHg BP response to stress: Normal blood pressure response to stress. ECG Resting ECG: Sinus Rhythm, nonspecific ST-T abnormalities Ectopy: none Stress ECG: Sinus Tachycardia ST Change: No significant ST segment changes noted Arrhythmia: rare PVCs Recovery ECG: Sinus Rhythm Recovery ST Change: No significant ST segment changes noted Recovery Arrhythmia: None Clinical Reason for Termination: Target HR Achieved Stress Symptoms: none Exercise duration: 08 min55 sec Highest Stage Reached: Stage 3: 3.4 mph at 14% grade. Exercise capacity: 10.16 METs Angina Score: None Melvin Treadmill Score: 8.5 Rate Pressure Product: [id number] Stress ECG Conclusion 1. Resting electrocardiogram was normal 2. Patient exercised on the Ismon protocol completed workload of 10.16 METS 3. Normal heart rate and blood pressure response to exercise. The patient achieved 87% predicted hea rt rate for age 4. There was no electrocardiographic evidence of myocardial ischemia 5. There were no significant dysrhythmias Melvin Treadmill Score is 8.5 which is Low risk. Stress Test Summary STAGE Time (mins) Speed (mph) Grade (%) HR BP SpO2 SYMPTOMS METS Supine 77 142/98 98 Standing 96 130/98 1 3 1.7 10 122 148/80 97 4.5 2 6 2.5 12 145 170/96 7 3 9 3.4 14 160 10 1 min recovery 143 168/52 97 3 min recovery 117 160/82 6 min recovery 92 114/82 98
== END 2024-06-01 01:16 ==
LOC: DI 00:57
PROVIDERS: PCP Nurse Practitioner Adult Health; Visit Provider Nurse Practitioner Adult Health
DX: R07.89 Other chest pain (principal)
CPT/HCPCS: 93016; 93018; 93017

== ENCOUNTER 2024-06-01 12:52 | Outpatient (REF) | payer OTHER, SELFPAY ==
[2024-06-01 22:44] LABS: IgE 25 IU/mL (<158)
== END 2024-06-01 12:53 | disposition home or self-care (01) ==
LOC: LBN 12:52
PROVIDERS: PCP Nurse Practitioner Adult Health; Visit Provider Physician Assistant Surgical
DX: J45.40 Moderate persistent asthma, uncomplicated (principal)
CPT/HCPCS: 82785

== ENCOUNTER 2024-07-27 13:33 | Emergency (ER) | payer OTHER, SELFPAY ==
--- NOTE | 2024-07-27 13:30 | RT.EKG_ITS ---
APPROVED REPORT Exam: Resting ECG Reason for Exam: sudden SOB Patient Location: E HR:96 bpm ECG Measurements Heart Rate 96 AXIS [place] 138 P 46 QRSd 91 QRS 22 QT 340 T 47 QTc 429 Conclusion Sinus rhythm...normal P axis, V-rate 60- 99 I have reviewed and interpreted ECG and agree with software generated interpretation.
[2024-07-27 13:37] VITALS: BP 179/83; PULSE 107; RESP 16; TEMP 36.8; O2SAT 98
[2024-07-27 13:43] VITALS: PULSE 93; O2SAT 100
[2024-07-27 13:46] VITALS: BP 180/103; PULSE 108; O2SAT 100
[2024-07-27 13:50] VITALS: O2SAT 99
[2024-07-27 13:54] VITALS: BP 160/99; PULSE 90
--- NOTE | 2024-07-27 14:00 | DI.RAD_ITS ---
Exam(s) XR PORTABLE CHEST AP EXAM: XR PORTABLE CHEST AP CLINICAL HISTORY: chest pain TECHNIQUE: 2D digital imaging was performed. COMPARISON: CR XR CHEST 2V PA LATERAL from 03/23/2024 FINDINGS: Exam is limited by under penetration. LUNGS: Clear. No pleural abnormality seen. HEART: Normal size. AORTA: Normal diameter. BONES: Unremarkable for age. Soft tissues: Unremarkable. IMPRESSION: No acute findings. DATA REPOSITORY: RADIATION DOSE DELIVERED:
[2024-07-27 14:35] LABS: BE (Venous) 2 mmol/L (-2-3); HCO3 (Venous) 27 mmol/L (23-28); O2 Sat (Venous) 84 %; TCO2 (Venous) 24 mmol/L (24-29); pCO2 (Venous) 44 mmHg (41-51); pH (Venous) 7.39 (7.31-7.41); pO2 (Venous) 49 mmHg
[2024-07-27 14:36] LABS: Abs Immature Grans 0.04 10^3/uL (0.0-0.06); Absolute Basophil Count 0.08 10^3/uL (0.0-0.2); Absolute Eosinophil Count 0.09 10^3/uL (0.0-0.7); Absolute Lymphocyte Count 1.38 10^3/uL (1.2-3.4); Absolute Monocyte Count 0.57 10^3/uL (0.1-0.8); Absolute Neutrophil Count 7.07 10^3/uL (1.2-6.7); Basophils % 0.9 %; HGB 14.3 g/dL (13.5-17.5); Immature Grans % 0.4 %; MCHC 32.5 % (32.0-36.0); MCV 86 fL (80-95); MPV 10.8 fL (8.0-11.0); Monocytes % 6.2 %; Neutrophils % 76.5 %; Platelet Count 225 10^3/uL (130-400); RBC 5.11 10^6/uL (4.36-5.78); RDW 13.2 % (11.8-14.1); RDW-SD 41.2 fL; WBC 9.23 10^3/uL (4.4-10.8)
[2024-07-27 15:00] LABS: ALT 57 U/L (16-63); AST 27 U/L (15-37); Alkaline Phosphatase 89 U/L (46-116); Anion Gap 11.4 mmol/L (3-11); BUN 11 mg/dL (7-18); Bilirubin, Total 0.33 mg/dL (0.2-1.0); CO2 26.6 mmol/L (21.0-32.0); CREATININE 1.2 mg/dL (0.70-1.30); Chloride 105 mmol/L (98-107); Estimated GFR 81.38 (mL/min/1.73m2); Glucose 113 mg/dL (74-106); Lipase 52 U/L (<78); Potassium 3.6 mmol/L (3.5-5.1); Sodium 143 mmol/L (136-145); Total Protein 8.4 g/dL (6.4-8.2)
[2024-07-27 15:03] LABS: Troponin I < 4 ng/L (<or=76)
--- NOTE | 2024-07-27 15:04 | ED.GENADUL_ITS ---
Discharge Plan Disposition Patient Disposition: Home Condition: Good Discharge Details Chief Complaint: SOB/SuddenOnset Clinical Impression: Chest discomfort Primary Care Provider: Yadira Heller ED Provider: Tariq Patrick Home Meds and New Rx's Prescriptions: No Action fluticasone propion-salmeterol [Advair Diskus] 250-50 mcg/dose blister with device 1 inh inhalation BID Qty: 60 1RF Rx Instructions: Rinse after use albuterol sulfate 90 mcg/actuation HFA aerosol inhaler 2 puff inhalation Q6H PRN (Reason: shortness of breath or wheezing) Qty: 6.7 6RF loratadine 10 mg tablet 10 mg PO DAILY PRN (Reason: allergy symptoms) Qty: 60 0RF Rx Instructions: Allergy symptoms (DME) Aerochamber MV Spacer See Rx Instructions .Route Qty: 1 0RF Rx Instructions: As directed omeprazole 40 mg capsule,delayed release(DR/EC) 40 mg PO DAILY Qty: 30 1RF fluticasone propion-salmeterol [Advair Diskus] 500-50 mcg/dose blister with device 1 inh inhalation BID Qty: 60 3RF Rx Instructions: Dose increase for asthma 04/01/2024 Breztri Aerosphere 160-9-4.8 mcg/actuation HFA aerosol inhaler 2 inh inhalation BID Qty: 10.7 12RF Discharge Instructions Instructions: Chest Pain, Adult ED Additional Instructions: At this time your workup has returned reassuring. There is no evidence of significant cardiac or lung abnormality. Your COVID flu and RSV testing is negative. If you notice any worsening of your symptoms, or any new symptoms such as vomiting, diarrhea, fever, chills, shortness of breath, chest pain, numbness, weakness, or fainting , please return immediately to the emergency department for reevaluation. Please follow up with your primary care provider as soon as possible for reassessment and reevaluation. As always, it was a pleasure participating in your medical care today. Referrals: Yadira Heller, STORAGE MANAGEMENT ARCHITECT [Primary Care Provider] - HPI General Date/Time Provider Initiated Documentation: 07/27/24 13:40 . HPI Narrative: 34-year-old male with a past medical history of bilateral inguinal hernias which were surgically repaired, a history of episodes of shortness of breath and reactive airway disease on albuterol, with previous pulmonary function testing performed as an outpatient, who presents today for evaluation of shortness of breath. Patient states that for the last week he has felt slightly off. And then today he felt somewhat short of breath. He felt like he would have a hard time taking a deep breath. He denies any cough. He denies any exertional chest discomfort. He did take his breathing treatment without any improvement. He denies any runny nose, fever or chills. He denies any other complaints at this time. Denies PE risk factors such as recent long car rides, immobilization, recent surgery, prior history of DVT or PE, family history of PE or DVT, morbid obesity, exogenous estrogen and smoking, hemoptysis, history of cancer. Related Data Home Medications ?Medication ?Instructions ?Recorded ?Confirmed loratadine 10 mg tablet 10 mg PO DAILY PRN allergy 09/19/22 07/27/24 symptoms #60 tabs inhalational spacing device #1 ea 01/06/24 07/27/24 (Aerochamber MV spacer) fluticasone 250 mcg-salmeterol 50 1 inh inhalation BID #60 ea 03/19/24 07/27/24 mcg/dose blistr powdr for inhalation (Advair Diskus) fluticasone 500 mcg-salmeterol 50 1 inh inhalation BID #60 ea 05/04/24 07/27/24 mcg/dose blistr powdr for inhalation (Advair Diskus) albuterol sulfate 90 mcg/actuation 2 puff inhalation Q6H PRN 05/25/24 07/27/24 aerosol inhaler shortness of breath or wheezing #6.7 grams budesonide 160 mcg-glycopyr 9 2 inh inhalation BID #10.7 grams 06/09/24 07/27/24 mcg-formot 4.8 mcg/actuation HFA inhaler (Breztri Aerosphere) omeprazole 40 mg capsule,delayed 40 mg PO DAILY #30 caps 06/17/24 07/27/24 release Previous Rx's ?Medication ?Instructions ?Recorded loratadine 10 mg tablet 10 mg PO DAILY PRN allergy 09/19/22 symptoms #60 tabs inhalational spacing device #1 ea 01/06/24 (Aerochamber MV spacer) fluticasone 250 mcg-salmeterol 50 1 inh inhalation BID #60 ea 03/19/24 mcg/dose blistr powdr for inhalation (Advair Diskus) fluticasone 500 mcg-salmeterol 50 1 inh inhalation BID #60 ea 05/04/24 mcg/dose blistr powdr for inhalation (Advair Diskus) albuterol sulfate 90 mcg/actuation 2 puff inhalation Q6H PRN 05/25/24 aerosol inhaler shortness of breath or wheezing #6.7 grams budesonide 160 mcg-glycopyr 9 2 inh inhalation BID #10.7 grams 06/09/24 mcg-formot 4.8 mcg/actuation HFA inhaler (Breztri Aerosphere) omeprazole 40 mg capsule,delayed 40 mg PO DAILY #30 caps 06/17/24 release Allergies Allergy/AdvReac Type Severity Reaction Status Date / Time No Known Allergies Allergy Verified 07/27/24 13:42 General Stated Complaint: SOB/SuddenOnset LEYDA: 3 Exam Narrative Exam Narrative: 1.Const: Well-nourished, Well-developed, appearing stated age 2.Eyes: PERRL, no conjunctival injection, and symmetrical lids. 3.ENT: Atraumatic external nose and ears. Moist MM. Neck: Symmetric, trachea midline, No thyromegaly. 4.CVS: +S1/S2, Peripheral pulses 2+ and equal in all extremities. Brisk capillary refill in all extremities. 5.RESP: Unlabored respiratory effort. Clear to auscultation bilaterally. No wheezes rales or rhonchi 6.GI: Soft, Nontender/Nondistended, No hepatosplenomegaly. No guarding or re bound. 7.MSK: Normocephalic/Atraumatic, Extremities w/o deformity or ttp No cyanosis or clubbing, Normal movement of all extremities. No calf tenderness 8.Skin: Warm, Dry. No rashes or lesions. 9.Neuro: lot boss II-XII grossly intact. Sensation grossly intact, no focal neurologic deficits. 10.Psych: (AAO) x3. Appropriate mood and affect Course Vital Signs Vital signs: Vital Signs Temperature 36.8 C 07/27/24 13:37 Pulse 107 H 07/27/24 13:37 Respiratory Rate 16 07/27/24 13:37 Blood Pressure 179/83 H 07/27/24 13:37 Pulse Oximetry 98 07/27/24 13:37 Temperature 36.8 C 07/27/24 13:37 Pulse 93 H 07/27/24 13:43 Respiratory Rate 16 07/27/24 13:37 Respiratory Effort Normal 07/27/24 13:40 Respiratory Depth Normal 07/27/24 13:40 Respiratory Pattern Normal 07/27/24 13:40 Blood Pressure 179/83 H 07/27/24 13:37 Pulse Oximetry 100 07/27/24 13:43 Oxygen Delivery Method Room Air 07/27/24 13:43 Oxygen Flow Rate 0 07/27/24 13:43 Pain Level 0 07/27/24 13:37 Lab/Test Results Lab/Test Results: Laboratory Tests Range/Units 07/27/24 14:25 WBC (4.4-10.8) 10^3/uL 9.23 RBC (4.36-5.78) 10^6/uL 5.11 Hgb (13.5-17.5) g/dL 14.3 Hct (40.0-50.0) % 44.0 MCV (80-95) fL 86 MCH (27.0-33.0) pg 28.0 MCHC (32.0-36.0) % 32.5 RDW (11.8-14.1) % 13.2 Plt Count (130-400) 10^3/uL 225 MPV (8.0-11.0) fL 10.8 Immature Gran % % 0.4 Neutrophils % % 76.5 Lymphocytes % % 15.0 Monocytes % % 6.2 Eosinophils % % 1.0 Basophils % % 0.9 Nucleated RBC % (0.0-0.3) % 0.0 Absolute Neutrophils (1.2-6.7) 10^3/uL 7.07 H Absolute Lymphocytes (1.2-3.4) 10^3/uL 1.38 Absolute Monocytes (0.1-0.8) 10^3/uL 0.57 Absolute Eosinophils (0.0-0.7) 10^3/uL 0.09 Absolute Basophils (0.0-0.2) 10^3/uL 0.08 VBG pH (7.31-7.41) 7.39 VBG pCO2 (41-51) mmHg 44 VBG pO2 mmHg 49 VBG HCO3 (23-28) mmol/L 27 VBG Total CO2 (24-29) mmol/L 24 VBG O2 Saturation % 84 VBG Base Excess (-2-3) mmol/L 2 Sodium (136-145) mmol/L 143 Potassium (3.5-5.1) mmol/L 3.6 Chloride (98-107) mmol/L 105 Carbon Dioxide (21.0-32.0) mmol/L 26.6 Anion Gap (3-11) mmol/L 11.4 H BUN (7-18) mg/dL 11 Creatinine (0.70-1.30) mg/dL 1.2 Est GFR (CKD-EPI 2020) (mL/min/1.73m2) 81.38 Glucose (74-106) mg/dL 113 H Total Bilirubin (0.2-1.0) mg/dL 0.33 AST (15-37) U/L 27 ALT (16-63) U/L 57 Alkaline Phosphatase (46-116) U/L 89 Troponin I (<or=76) ng/L < 4 Total Protein (6.4-8.2) g/dL 8.4 H Albumin (3.4-5.0) g/dL 4.0 Lipase (<78) U/L 52 Medical Decision Making 34-year-old male with a past medical history of bilateral inguinal hernias which were surgically repaired, a history of episodes of shortness of breath and reactive airway disease on albuterol, with previous pulmonary functi on testing performed as an outpatient, who presents today for evaluation of shortness of breath. Patient states that for the last week he has felt slightly off. And then today he felt somewhat short of breath. He felt like he would have a hard time taking a deep breath. He denies any cough. He denies any exertional chest discomfort. He did take his breathing treatment without any improvement. He denies any runny nose, fever or chills. He denies any other complaints at this time. Denies PE risk factors such as recent long car rides, immobilization, recent surgery, prior history of DVT or PE, family history of PE or DVT, morbid obesity, exogenous estrogen and smoking, hemoptysis, history of cancer. Exam demonstrates a well-appearing male, minimal tachycardia, mild hypertension. Lung sounds are clear, no hypoxemia. Differential includes viral etiology, pleuritic component, less likely pancreatitis. Cardiac etiology is on the differential but unlikely. We will get troponins and EKG. Will check VBG. Symptoms are clinically inconsistent with PE. Will monitor closely and reassess. Bedside echo was performed and shows no evidence of cardiac strain, right heart strain, dilatation, pericardial tamponade, or other significant abnormality. 3:40 PM Laboratory workup normal, no white count or bandemia. VBG normal. Electrolytes normal, renal function normal, serial troponins normal, lipase normal, COVID flu and RSV normal. No other significant abnormalities. Patient looks clinically well. Bedside echo demonstrates no significant concerning abnormality. Chest x -ray negative for acute process. Symptoms appear inconsistent for PE, dissection, pneumothorax, ACS, or other significant life-threatening abnormality. Patient stable for discharge. Will recommend continued close outpatient follow-up. GERD reflux or esophageal spasm certainly remains high in the differential. I have extensively reviewed the treatment plan and discharge instructions with the patient. I have addressed all patient concerns at this time. The patient was made aware of what symptoms to monitor for that would warrant a return to the emergency department. Discussed the plan with the patient, they demonstrate verbal understanding and agreement with our assessment and plan at this time. The documentation in this chart was dictated using [employer] dictation software. Please excuse any dictation errors. FINDINGS: Exam is limited by under penetration. LUNGS: Clear. No pleural abnormality seen. HEART: Normal size. AORTA: Normal diameter. BONES: Unremarkable for age. Soft tissues: Unremarkable. IMPRESSION: No acute findings. Quality:SDOH Health Related Social Needs: No Data to Display PFSH All Active Problems (Updated 07/27/24 @ 15:56 by Tariq Patrick DO) Chest discomfort (Acute) Globus sensation (Acute) Asthma (Chronic ~03/2024) POS methacholine challenge with symptoms Bilateral inguinal hernia (Acute) Inguinal hernia of right side without obstruction or gangrene (Acute) Right groin pain (Acute) Left varicocele (Acute) Fatigue (Acute) Recurrent canker sores (Acute) Impaired fasting glucose (Acute ~11/2022) A1C 5.5% Family history of autoimmune disorder (Acute) Polyarthralgia (Acute) Raynaud's phenomenon (Acute ~10/2019) ?--without discoloration Myalgia (Acute) Medical History Pilonidal cyst Managed nonsurgical at [facility] with Hyacinth Ivy (drained) Epididymitis Dysuria Surgical History S/P bilateral inguinal hernia repair (~12/18/23) open [place] teeth removed (~2017) Dr. Madsen Family History Father Asthma Glaucoma Paternal Grandmother Cancer Diabetes Maternal Uncle Hypertension Rheumatoid arthritis Maternal Aunt Lupus Maternal Grandmother Leukemia Mother CREST syndrome Social History Smoking/Tobacco Use Status: Never Smoking risk assessment performed?: Yes Alcohol Intake: current Alcohol Intake frequency: a few times a week Drug use: Never Substance use type: does not use Adopted: No Caregiver/Support person: No Foster care: No Household members: spouse Housing: house Number of Children: 0 number of grandchildren: 0 Communication Needs: Corrective Lenses Education Level: high school Do you need help understanding health information?: Never 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 Pets and animals: Yes Pets and animals: cat(s) Sexually active: Yes Do you think of yourself as: straight/heterosexual Current gender identity: male What is your relationship status?: How often do you talk on the phone with friends or family?: three or more times per week How often do you get together with friends or relatives?: twice per week Do you belong to any clubs or organized social groups?: no Panel score (0-1 are the most socially isolated patients): 2 What type of physical activity do you participate in: regular exercise Frequency: daily Shea/Mormon: None Special shea needs: No Seatbelt use: always Helmet use: Yes Helmet use: always Drive intox or ride w/intox powder truck driver: No Do you feel safe at home: Yes Do you feel safe in your relationship?: Yes POCUS Exam (ED) Limited Cardiac Exam DATE OF EXAM: 07/27/24 TIME OF EXAM: 15:41 PROVIDER THAT PERFORMED THE STUDY: Tariq Patrick IS THIS A REPEAT EXAM DURING THIS ENCOUNTER: no REASON FOR EXAM: Chest pain VISUALIZED STRUCTURES: Left atrium, Left ventricle, Right ventricle, Mitral v alve and Interventricular septum VIEW OBTAINED: Parasternal long-axis and Parasternal short-axis PERTINENT FINDINGS/IMPRESSION: No apparent abnormalities Exam complete
[2024-07-27 15:05] LABS: Calcium 9.4 mg/dL (8.5-10.1)
[2024-07-27 15:11] LABS: COVID-19 PCR Negative (Negative); Influenza A PCR Negative (Negative); Influenza B PCR Negative (Negative); RSV PCR Negative (Negative)
[2024-07-27 15:14] LABS: Source Nasopharynx
[2024-07-27 15:53] LABS: Troponin I < 4 ng/L (<or=76)
== END 2024-07-27 16:00 | disposition home or self-care (01) ==
PROVIDERS: Emergency Provider Student in an Organized Health Care Education/Training Program; PCP Nurse Practitioner Adult Health
DX: R07.9 Chest pain, unspecified (principal); R06.02 Shortness of breath
CPT/HCPCS: 36415; 80053; 82805; 83690; 87637; 93005; 93308; 99285; 71045; 84484; 85025; 93010; 99284

== ENCOUNTER 2024-08-12 02:23 | Outpatient (CLI) | payer OTHER, SELFPAY ==
--- NOTE | 2024-08-12 07:50 | DI.RAD_ITS ---
Exam(s) XR CERVICAL SPINE COMP 4-5V EXAM: XR CERVICAL SPINE COMP 4-5V CLINICAL HISTORY: neck pain, radiates into RUE; left neck,m54.2. TECHNIQUE: 2D digital imaging was performed. Five views were performed. COMPARISON: CR XR CERVICAL SPINE COMP 4-5V from 10/18/2022 FINDINGS: BONES: No fracture or destructive lesion. Vertebral bodies are unremarkable. DISKS: Intervertebral disc spaces are maintained. ALIGNMENT: Cervical spinal alignment is within normal limits. The odontoid and atlantoaxial articulat ions are normal. SOFT TISSUE: Normal. The lung apices are clear. IMPRESSION: Unremarkable radiographs of the cervical spine. DATA REPOSITORY: RADIATION DOSE DELIVERED:
--- NOTE | 2024-08-12 07:50 | DI.RAD_ITS ---
Exam(s) XR LUMBAR SPINE COMPLETE EXAM: XR LUMBAR SPINE COMPLETE CLINICAL HISTORY: lumbar spine pain with potential for rle radiculopathy,m54.50. TECHNIQUE: 2D digital imaging was performed. Five views. COMPARISON: CT CT ABDOMEN PELVIS WO from 09/27/2022 FINDINGS: BONES: No acute fracture or destructive lesion. Vertebral body heights are maintained. No facet hy pertrophy identified . Left-sided pars defect L5. 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 DISKS: Intervertebral disc spaces are maintained. ALIGNMENT: Lumbar spinal alignment is within normal limits. SOFT TISSUE: Normal. IMPRESSION: Left-sided pars defect at L5. No disc space narrowing or spondylolisthesis. DATA REPOSITORY: RADIATION DOSE DELIVERED:
== END 2024-08-12 02:43 ==
LOC: DI 02:23
PROVIDERS: PCP Nurse Practitioner Adult Health; Visit Provider Nurse Practitioner Adult Health
DX: M54.2 Cervicalgia (principal); M54.50 Low back pain, unspecified
CPT/HCPCS: 72050; 72110

== ENCOUNTER 2024-08-12 03:17 | Outpatient (CLI) | payer OTHER, SELFPAY ==
[2024-08-12 07:40] LABS: Hemoglobin A1C 5.5 % (<5.7)
[2024-08-12 08:07] LABS: Calculated LDL 110 mg/dL (<100); Cholesterol 168 mg/dL (<200); Folate 19.6 ng/mL (8.6-20.0); HDL Cholesterol 47 mg/dL (40-60); Triglyceride 59 mg/dL (<150); Vitamin B12 686 pg/mL (193-986); Vitamin D 25 Total 26.4 ng/mL (30-100)
== END 2024-08-12 03:18 | disposition home or self-care (01) ==
LOC: LBO 03:17
PROVIDERS: PCP Nurse Practitioner Adult Health; Referring Provider Nurse Practitioner Adult Health; Visit Provider Nurse Practitioner Adult Health
DX: R73.01 Impaired fasting glucose (principal); R53.83 Other fatigue; Z13.6 Encounter for screening for cardiovascular disorders
CPT/HCPCS: 36415; 80061; 82306; 82607; 82746; 83036

== ENCOUNTER 2024-08-31 00:18 | Outpatient (CLI) | payer OTHER, SELFPAY ==
--- NOTE | 2024-08-31 10:11 | DI.RAD_ITS ---
Exam(s) RF BARIUM SWALLOW EXAM: RF BARIUM SWALLOW CLINICAL HISTORY: ? aspiration,globus sensation,r09.a2 TECHNIQUE: 2D and realtime digital imaging was performed. CONTRAST MATERIAL: Thick and thin barium and barium tablet were administered. COMPARISON: CR XR CERVICAL SPINE COMP 4-5V from 08/12/2024 FINDINGS: The PA and lateral chest films show normal heart size and clear lung monsivais. The lateral garbage truck helper view of the neck is unremarkable. Esophagus: The patient swallowed barium without difficulty. Noevidence for mucosal erosions. Nofol d thickening. No mass is visible. Nostricture. Motility: There is a normal primary stripping wave. No tertiary contractions were noted. There is no hiatal hernia. Nogastroesophageal reflux was observed during the exam. The barium tablet passed into the stomach without delay. IMPRESSION: Normal barium swallow. RADIATION DOSE DELIVERED: samantha Gibbons=21.8 mGy
[2024-08-31] MEDS: Barium Sulfate 700 MG TAB PO (10:13)
[2024-08-31] MEDS: Simethicone/Sod Bicarb/Cit Ac, 4 gram PACKET 1 PACKET PO (10:14)
[2024-08-31] MEDS: Barium Sulfate 98% W/W 140 ML BTL PO (10:15)
[2024-08-31] MEDS: Barium Sulfate 60% W/V 355 ML BTL PO (10:16)
== END 2024-08-31 00:38 ==
LOC: DI 00:18
PROVIDERS: PCP Nurse Practitioner Adult Health; Visit Provider Surgery
DX: R09.A2 Foreign body sensation, throat (principal)
CPT/HCPCS: 74221; J3490

== ENCOUNTER 2024-09-02 00:31 | Outpatient (CLI) | payer OTHER, SELFPAY ==
--- NOTE | 2024-09-02 09:40 | DI.RAD_ITS ---
Exam(s) RF CHEST FLUOROSCOPY CXR 2V EXAM: RF CHEST FLUOROSCOPY CXR 2V CLINICAL HISTORY: abnormal imaging,elevated hemidiaphragm,j98.6 TECHNIQUE: 2D and realtime digital imaging was performed. Fluoroscopy was provided in the OR. COMPARISON: CT CT ABDOMEN PELVIS WO from 09/27/2022 CR XR CHEST 2V PA LATERAL from 01/06/2024 CR XR CHEST 2V PA LATERAL from 03/23/2024 CR XR PORTABLE CHEST AP from 07/27/2024 CR,RF RF BARIUM SWALLOW from 08/31/2024 FINDINGS: The exam was performed in upright and supine positions. There is normal excursion of both james diaphragms in upright and supine positions. No evidence of di aphragmatic paralysis. Based on review of the previous abdomen and pelvic CT the rads of high positioning of the diaphragms on chest x-ray may be secondary to a large quantity of intra-abdominal fat. IMPRESSION: Normal diaphragmatic excursion. RADIATION DOSE DELIVERED: Edwiger=17.4 mGy
== END 2024-09-02 00:51 ==
LOC: DI 00:32
PROVIDERS: PCP Nurse Practitioner Adult Health; Visit Provider Physician Assistant Surgical
DX: J98.6 Disorders of diaphragm (principal)
CPT/HCPCS: 76000

== ENCOUNTER 2024-09-04 01:27 | Outpatient (CLI) | payer OTHER, SELFPAY ==
--- NOTE | 2024-09-08 12:23 | W.PFT ---
Date of service: 09/04/24 Time of Service: 08:06 Pulmonary Function Test Result Indications: Asthma Interpretation Spirometry: There is no airflow limitation. Lung Volumes: Normal lung volumes Diffusion Capacity: Normal diffusion Airway Pressure: Normal airways resistance Impression Normal pulmonary function testing Clinical Correlation therefore is recommended.
== END 2024-09-04 01:28 | disposition home or self-care (01) ==
LOC: RT 01:27
PROVIDERS: PCP Nurse Practitioner Adult Health; Visit Provider Student in an Organized Health Care Education/Training Program
DX: J45.909 Unspecified asthma, uncomplicated (principal)
CPT/HCPCS: 94726; 94729; 94010

== ENCOUNTER 2024-09-08 02:42 | Outpatient (CLI) | payer OTHER, SELFPAY ==
--- NOTE | 2024-09-08 06:15 | DI.NM_ITS ---
Exam(s) IA HEPATOBILIARY CCK GRP EXAM: IA HEPATOBILIARY CCK GRP CLINICAL HISTORY: assess function gallbladder,epigastric pain, atypical chest pain,r10.13. TECHNIQUE: Injected dose: 5 mCi Tc-99 mebrofenin Initial dynamic images: 60 minutes Post-Gallbladder fillin.02 mcg/kg CCK intravenously over a 15min infusion. Addition images: 20 minute dynamic during CCK administration. COMPARISON: Prior ultrasound 09/03/2024 FINDINGS: There is normal uptake and excretion of radiopharmaceutical by the liver. Activity is 1st seen withi n the gallbladder at 29 minutes post injection. CBD is not dilated. In response to CCK infusion there is an abnormally low gallbladder ejection fracture of only 7 percen t demonstrate. Normal is over 35 percent. This indicates an element of gallbladder dysfunction IMPRESSION: 1. There is no obstruction of the cystic duct. 2. However, in response to CCK infusion there is a significantly decreased gallbladder ejection fract ion of only 7 percent demonstrated on this CCK challenge study. Normal ejection fraction is greater than 35 percent. This therefore indicates an element of gallbladder dysfunction. SN guidelines: Gallbladder visualization should be present by 3 hours. Delayed [id number] cole sit beyond 60 min raises the suspicion for partial common bile duct (CBD) obstruction. Gallbladder ejection fraction <35% has a good correlation with acalculous disease (i.e., chronic acal culous cholecystitis, cystic duct syndrome, sphincter of Oddi disease).
[2024-09-08] MEDS: Sincalide 5 MCG VIAL 1.7 MCG IJ (11:18)
[2024-09-08] MEDS: Water,Injection,Sterile 10 ML VIAL IJ (11:19)
== END 2024-09-08 03:02 ==
LOC: DI 02:42
PROVIDERS: PCP Nurse Practitioner Adult Health; Visit Provider Nurse Practitioner Adult Health
DX: R07.89 Other chest pain (principal); R10.13 Epigastric pain; K82.8 Other specified diseases of gallbladder
CPT/HCPCS: 78227; J2805

== ENCOUNTER 2024-09-08 10:17 | Outpatient (CLI) | payer OTHER, SELFPAY ==
[2024-09-08 19:38] LABS: Hepatitis A Antibody IgM Negative (Negative); Hepatitis B Core Antibody Negative (Negative); Hepatitis B surface Ag Negative (Negative); Hepatitis C Ab w Rflx HCV PCR Negative (Negative)
[2024-09-09 12:54] LABS: ANA Interpretation Negative (Negative)
[2024-09-11 15:46] LABS: Mitochondrial Ab, M2 <0.1 U (<0.1); Smooth Muscle Ab Screen Negative (Negative)
== END 2024-09-08 10:18 | disposition home or self-care (01) ==
LOC: LBO 10:17
PROVIDERS: PCP Nurse Practitioner Adult Health; Visit Provider Nurse Practitioner Adult Health
DX: K76.0 Fatty (change of) liver, not elsewhere classified (principal)
CPT/HCPCS: 36415; 83516; 86038; 86255; 86704; 86709; 86803; 87340

== ENCOUNTER 2024-09-14 01:35 | Outpatient (CLI) | payer OTHER, SELFPAY ==
--- NOTE | 2024-09-14 08:30 | DI.US_ITS ---
APPROVED REPORT EXAM: Comprehensive 2D, Doppler, and color-flow Echocardiogram Patient Location: Out-Patient Front End Loader Driver: Lasha Gibbs RDCS (AE) Indications: Baseline, chest tightness, atypical chest pain Conclusion Normal left ventricular wall thickness and chamber size. Ejection fraction is 60%. Wall motion is n ormal Normal right ventricular size and function Both atria are normal in size There is no structural or hemodynamically significant valvular disease Wall motion Left Ventricle The left ventricle is normal size. Left ventricular systolic function is normal. The left ventricular ejection fraction is within the normal range. There is normal left ventricular wall thickness. There is normal LV segmental wall motion. The left ventricular diastolic function is normal. There is no v entricular septal defect visualized. LVEF is 60%. Right Ventricle The right ventricle is normal size. The right ventricular systolic function is normal. Atria The left atrium size is normal. The right atrium size is normal. The interatrial septum is intact wit h no evidence for an atrial septal defect. Aortic Valve The aortic valve is normal in structure. Aortic valve is trileaflet. There is no aortic valvular sten osis. No aortic regurgitation is present. Mitral Valve The mitral valve is normal in structure. No evidence of mitral valve stenosis. There is no mitral garcía ve regurgitation noted. Tricuspid Valve The tricuspid valve is normal in structure. There is no tricuspid valve stenosis. There is no tricusp id valve regurgitation noted. Pulmonic Valve The pulmonary valve is normal in structure. There is no pulmonic valvular stenosis. There is trivial pulmonic valvular regurgitation. Great Vessels The aortic root is normal in size. The ascending aorta is normal in size. Aortic arch is normal in ca liber. IVC is normal in size and collapses >50% with inspiration. Pericardium There is no pericardial effusion. 2D Dimensions IVSD d PLAX 1.02 cm Ao Root d 2.67 cm LVPW d PLAX 0.97 cm Ao Asc Diam d 2.70 cm LVID d PLAX 4.59 cm LVDs 3.19 cm LV EF Teichholz 58.1 % FS 30.53 % LV EDV (Teich) 96.9 mL LV ESV (Teich) 40.7 mL Stroke Vol Index (Teich) 24.26 M-Mode TAPSE 1.85 cm (M/F) >1.7 Auto EF LV EDV A4C 128.5 mL LV EDV A2C 121.2 mL LV EDV BP 126.0 mL LV ESV A4C 54.8 mL LV ESV A2C 46.2 mL LV ESV BP 50.1 mL LVEF(%) A4C 57.4 % LVEF(%) A2C 61.9 % LVEF(%) BP 60.2 % LV SV A4C 73.7 ml LV SV A2C 75.0 ml LV SV BP 75.9 ml LV CO A4C 6.4 L/min LV CO A2C 6.2 L/min LV CO BP 6.3 L/min HR A4C 86.96 BPM HR A2C 82.01 BPM LV EDV Index (BP) LA Volume LA Length A4C 3.7 cm LA Length A2C 3.9 cm LA Area A4C s 9.09 cm2 LA Area A2C s 14.90 cm2 LA Vol A4C A-L 19.12 mL LA Vol A2C A-L 47.78 mL LA Vol Biplane A-L 31.3 mL LA Vol/BSA A4C A-L LA Vol/BSA A2C A-L LA Vol/BSA BP A-L 13.5 mL/m2 LA Vol A4C MOD 18.8 mL LA Vol A2C MOD 43.7 mL LA Vol BP MOD 29.5 mL RA Volume RA Area A4C 7.1 cm2 RA ESV A4C (A-L) 10.5mL RA Vol/BSA A4C A-L RA Length A4C 4.1 cm RA ESV A4C (MOD) 10.4mL LV Diastology MV E' medial 0.091 (>0.07 m/s) MV E Vmax 0.70 (0.4-1.3 m/s) MV E/E' MED 7.69 (<14) MV A Vmax 0.65 (0.4-1.3 m/s) MV E' lateral 0.139 (>0.1 m/s) E/A Ratio 1.00 MV E/E' LAT 5.04 (<14) MV E' Average 0.115 m/s MV E/E'(average) 6.09 Aortic Valve AoV Vmax 1.05 m/s LVOT Vmax 1.14 m/s AoV Peak Grad 4.4 mmHg LVOT Peak Grad 5.2 mmHg AoV Area (Vmax) 3.51 cm2 LVOT VTI 0.217 m AoV VTI 0.223 m LVOT Mean Grad 2.5 mmHg AoV Mean Karl. 0.70 m/s LVOT SV 70.29 mL AoV Mean Grad 2.3 mmHg LVOT Diam s 2.00 cm AoV Area (VTI) 3.16 cm2 AV Regurg Peak Gr. 4.44 mmHg Mitral Valve MV DT 161 (160-240 msec) Pulmonary Valve PV Vmax 1.29 (0.5-1.5 m/s) PV Peak Grad 6.7 mmHg PV Mean Karl 0.89 m/s PV Mean Grad 3.7 mmHg
== END 2024-09-14 01:55 ==
LOC: DI 01:35
PROVIDERS: PCP Nurse Practitioner Adult Health; Visit Provider Nurse Practitioner Adult Health
DX: R07.89 Other chest pain (principal)
CPT/HCPCS: 93306

== ENCOUNTER 2025-07-06 06:07 | Day surgery (SDC) | payer OTHER, SELFPAY ==
--- NOTE | 2025-07-05 18:13 | ANES.PREOP_ITS ---
General Info Date of Service Date Performed: 07/06/25 Height: 5 ft 11 in Weight: 101.206 kg Body Mass Index (BMI): 31.1 Surgical Procedure: Operation Date: 07/06/25 07:40 Proposed Procedure Side Surgeon p Cholecystectomy Laparoscopic Nathaniel Zamudio MD Meds Allergies and Home Medications Allergies Allergy/AdvReac Type Severity Reaction Status Date / Time No Known Allergies Allergy Verified 07/06/25 06:20 Home Medication ?Medication ?Instructions ?Recorded loratadine 10 mg tablet 10 mg PO DAILY PRN allergy 0 09/19/22 symptoms #60 tabs inhalational spacing device #1 ea 01/06/24 (Aerochamber MV spacer) albuterol sulfate 90 mcg/actuation 2 puff inhalation Q 6H PRN 05/25/24 aerosol inhaler shortness of breath or wheez ing #6.7 grams budesonide 160 mcg-glycopyr 9 2 inh inhalation BID #10 .7 grams 06/09/24 mcg-formot 4.8 mcg/actuation HFA inhaler (Breztri Aerosphere) Current Visit Medications: Current Medications Generic Name Dose Route Start Last Admin Trade Name Freq PRN Reason Stop Dose Admin Acetaminophen 1,000 mg 07/06/25 06:00 Acetaminophen 500 Mg Tab PO 08/04/25 23:59 PREOP DANYA Celecoxib 200 mg 07/06/25 06:00 Celecoxib 200 Mg Cap PO 08/04/25 23:59 PREOP DANYA Gabapentin 600 mg 07/06/25 06:00 Gabapentin 300 Mg Cap PO 08/04/25 23:59 PREOP DANYA Ringer's Solution 1,000 mls @ 80 mls/hr 07/06/25 06:00 IV 08/04/25 23:59 INFUSION DANYA Cefazolin Sodium/Dextrose 2 gm in 50 mls @ 100 mls/hr 07/06/25 06:00 Ancef Duplex IVPB 08/04/25 23:59 PREOP DANYA Indocyanine Green 5 mg 07/06/25 06:00 Indocyanine Green 25 Mg Vial IVP 07/06/25 23:59 DIRECTED DANYA Sodium Chloride 0 ml 07/06/25 06:00 Normal Saline Flush 10 Ml Syr IV 08/04/25 23:59 PRN PRN Sodium Chloride 0 ml 07/06/25 06:00 Normal Saline 10 Ml Vial IJ 08/04/25 23:59 DIRECTED PRN Sterile Water 0 ml 07/06/25 06:00 Water,Injection,Sterile 10 Ml Vial IJ 08/04/25 23:59 DIRECTED PRN PFSH Active Problems Active Problems: Problem Status Onset Code Trauma and stressor-related disorder Acute F43.9 Hepatic steatosis Acute ~08/2024 K76.0 Elevated hemidiaphragm Acute J98.6 Asthma Chronic ~03/2024 J45.909 Bilateral inguinal hernia Acute K40.20 Inguinal hernia of right side without obstruction or gangrene Acute K40.90 Right groin pain Acute R10.31 Left varicocele Acute I86.1 Recurrent canker sores Acute K12.0 Impaired fasting glucose Acute ~11/2022 R73.01 Family history of autoimmune disorder Acute Z83.2 Raynaud's phenomenon Acute ~10/2019 I73.00 Medical History Medical History Globus sensation PPI helpful Fatigue Polyarthralgia Pilonidal cyst Managed nonsurgical at [facility] with Hyacinth Ivy (drained) Epididymitis Dysuria Surgical History Surgical History S/P bilateral inguinal hernia repair (~12/18/23) open [place] teeth removed (~2016) Dr. Madsen Tobacco Smoking/Tobacco Use Status: Never Passive smoking exposure: No Alcohol Alcohol Intake: current Alcohol intake frequency: a few times a week Substance Use Substance use: Never Substance use type: does not use Vital Signs and Lab Results Vital Signs Most Recent Vital Signs in EMR: Temp Pulse Resp BP Pulse Ox 36.6 C 72 16 131/86 100 07/06/25 06:23 07/06/25 06:23 07/06/25 06:23 07/06/25 06:23 07/06/25 06:23 Imaging and Studies Imaging and Studies Study information below may be from another EMR and interpreted by another provider. Please see original notes in EMR for more complete details. EKG Summary: 07/27/24 ECG Measurements Heart Rate 96 AXIS [place] 138 P 46 QRSd 91 QRS 22 QT 340 T47 QTc 429 Conclusion Sinus rhythm...normal P axis, V-rate 60- 99 I have reviewed and interpreted ECG and agree with software generated interpretation. Stress Test Summary: 06/01/24 Stress ECG Conclusion 1. Resting electrocardiogram was normal 2. Patient exercised on the Simon protocol completed workload of 10.16 METS 3. Normal heart rate and blood pressure response to exercise. The patient achieved 87% predicted heart rate for age 4. There was no electrocardiographic evidence of myocardial ischemia 5. There were no significant dysrhythmias Melvin Treadmill Score is 8.5 which is Low risk. Echocardiogram Summary: 07/14/25 Conclusion Normal left ventricular wall thickness and chamber size. Ejection fraction is 60%. Wall motion is normal Normal right ventricular size and function Both atria are normal in size There is no structural or hemodynamically significant valvular disease Pulmonary Function Summary: 09/08/24 Impression Normal pulmonary function testing Clinical Correlation therefore is recommended. Anesthesia Assessment and Plan Anesthesia History Personal History: No History of Anesthesia Complications Family History: No Family History of Anesthesia Complications Exercise Tolerance Exercise Tolerance: Metabolic Equivalents>4 Pertinent Negatives Pertinent Negatives: No Symptoms of GERD, No Major Cardiovascular Symptoms or Complaints and No History of CVA/TIA Cardiac & Pulmonary Exam Cardiac Exam: Normal S1/S2 Heart Sounds Pulmonary Exam: Clear Bilateral Breath Sounds Implantable Cardiac Device Does patient have a Pacemaker or an ICD?: No Airway Exam Known Difficult Airway: No Mallampati Class: 3 Mouth Opening: Normal (> 3cm) Thyromental Distance: Greater than 3 cm Neck Range of Motion: Full ROM Neck Circumference: Thick Teeth Condition: Normal Dentition ASA Classification ASA Score: ASA 2 Emergency Case?: No NPO Status NPO Status: NPO Clears >2 hours, Solids >8 hours Anesthesia Plan Resuscitation Status: Full Code Anesthesia Technique: General Anesthesia Airway Planned: Endotracheal Tube Monitors Used: Standard Monitors
[2025-07-06] VITALS (14 sets, daily range): BP systolic 100–147; BP diastolic 36–91; PULSE 53–86; RESP 14–19; TEMP 36.2–36.6; O2SAT 92–100; BMI 31.1
[2025-07-06] MEDS: Acetaminophen 500 MG TAB 1000 MG PO (06:35)
[2025-07-06] MEDS: Celecoxib 200 MG CAP PO (06:35)
[2025-07-06] MEDS: Gabapentin 300 MG CAP 600 MG PO (06:35)
[2025-07-06] MEDS: Lactated Ringers 1,000 ML 80 ML IV (06:49)
[2025-07-06] MEDS: Indocyanine green 25 MG VIAL 5 MG IVP (07:08)
--- NOTE | 2025-07-06 07:16 | W.PREOPHP ---
Assessment and Plan Assessment and plan (1) Biliary dyskinesia: Status: Acute Assessment and plan: We reviewed the plan for laparoscopic cholecystectomy, generally had the chance to ask any questions about the procedure. He is able to provide informed consent, and we can proceed with cholecystectomy as planned. History of Present Illness History of Present Illness Chief Complaint: Dyspepsia Narrative: Tray is 35 years old. For several months he has been experiencing discomfort associated with eating and swallowing. He had some mid epigastric discomfort that seems consistent with mild dyspepsia, was started on a proton pump inhibitor. He did not experience much change in his symptoms. He also underwent an extensive workup for reactive airway disease as well as gastroesophageal reflux disease with essentially a negative EGD. This workup was complemented with a HIDA scan that demonstrated an ejection fraction around 7%, and discomfort symptoms experienced during the CCK injection. He was diagnosed with biliary dyskinesia, and I recommended laparoscopic cholecystectomy to see if that would help improve his symptoms. PFSH All Active Problems (Updated 07/06/25 @ 07:19 by Nathaniel Zamudio MD) Biliary dyskinesia (Acute) Trauma and stressor-related disorder (Acute) Hepatic steatosis (Acute ~08/2024) imaging Elevated hemidiaphragm (Acute) Asthma (Chronic ~03/2024) POS methacholine challenge with symptoms Bilateral inguinal hernia (Acute) Inguinal hernia of right side without obstruction or gangrene (Acute) Right groin pain (Acute) Left varicocele (Acute) Recurrent canker sores (Acute) Impaired fasting glucose (Acute ~11/2022) A1C 5.5% Family history of autoimmune disorder (Acute) Raynaud's phenomenon (Acute ~10/2019) ?--without discoloration Medical History (Updated 07/06/25 @ 07:19 by Nathaniel Zamudio MD) Globus sensation PPI helpful Fatigue Polyarthralgia Pilonidal cyst Managed nonsurgical at [facility] with Hyacinth Ivy (drained) Epididymitis Dysuria Surgical History S/P bilateral inguinal hernia repair (~12/18/23) open [place] teeth removed (~2016) Dr. Madsen Family History Father Asthma Glaucoma Paternal Grandmother Cancer Diabetes Maternal Uncle Hypertension Rheumatoid arthritis Maternal Aunt Lupus Maternal Grandmother Leukemia Mother CREST syndrome Social History (Updated 08/27/24 @ 13:54 by Pita Brown RN) Smoking/Tobacco Use Status: Never Smoking risk assessment performed?: Yes Alcohol Intake: current Alcohol Intake frequency: a few times a week Drug use: Never Substance use type: does not use Adopted: No Caregiver/Support person: No Foster care: No Household members: spouse and children Housing: house Number of Children: 1 number of grandchildren: 0 Communication Needs: Corrective Lenses Education Level: high school Do you need help understanding health information?: Never 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 Duration: > 90 minutes/day Frequency: 5-6 times per week Shea/Restorationist: None Special shea needs: No Seatbelt use: always Helmet use: Yes Helmet use: always Drive intox or ride w/intox front end driver: No Do you feel safe at home: Yes Do you feel safe in your relationship?: Yes Meds Allergies and Home Medications Allergies Allergy/AdvReac Type Severity Reaction Status Date / Time No Known Allergies Allergy Verified 07/06/25 06:20 Home Medications ?Medication ?Instructions ?Recorded ?Confirmed ?Type loratadine 10 mg tablet 10 mg PO DAILY PRN allergy 09/19/22 07/02/25 Rx symptoms #60 tabs inhalational spacing device #1 ea 01/06/24 06/14/25 Rx (Aerochamber MV spacer) albuterol sulfate 90 mcg/actuation 2 puff inhalation Q6H PRN 05/25/24 07/06/25 Rx aerosol inhaler shortness of breath or wheezing #6.7 grams budesonide 160 mcg-glycopyr 9 2 inh inhalation BID #10.7 grams 11/12/24 12/09/25 Rx mcg-formot 4.8 mcg/actuation HFA inhaler ([employer]zBiopharmacopaephere) Exam Const General: cooperative, healthy appearing and not in acute distress Neck Neck: normal visual inspection, no lymphadenopathy and supple Resp Effort & Inspection: normal respiratory effort Auscultation: clear to auscultation bilaterally Cardio Jugular venous pressure: no JVD Rate: regular rate Rhythm: regular rhythm Heart Sounds: S1 normal and S2 normal GI Inspection: normal to inspection Palpation: soft, no guarding, no hernias and nontender Percussion: normal to percussion Auscultation: normal bowel sounds Neuro General: patient alert, patient awake and patient oriented x3 Psych Appearance: grossly normal Results Last Vital Signs Temp 97.9 F 07/06/25 06:23 Pulse 72 07/06/25 06:23 Resp 16 07/06/25 06:23 BP 131/86 07/06/25 06:23 Pulse Ox 100 07/06/25 06:23
--- NOTE | 2025-07-06 07:19 | PDOC.DSDIS_ITS ---
Date of service: 07/06/25 Discharge Plan Disposition Patient Disposition: Home Condition: Good Discharge Details Reason For Visit: Laparoscopic cholecystectomy Attending Provider: Nathaniel Zamudio Primary Care Provider: Yadira Heller Home Meds and New Rx's Prescriptions: New tramadol 50 mg tablet 50 mg PO Q8H PRNQty: 15 0RF Continued albuterol sulfate 90 mcg/actuation HFA aerosol inhaler 2 puff inhalation Q6H PRN (Reason: shortness of breath or wheezing) Qty: 6.7 6RF loratadine 10 mg tablet 10 mg PO DAILY PRN (Reason: allergy symptoms) Qty: 60 0RF Rx Instructions: Allergy symptoms (DME) Aerochamber MV Spacer See Rx Instructions .Route Qty: 1 0RF Rx Instructions: As directed Dotty Aerosphere 160-9-4.8 mcg/actuation HFA aerosol inhaler 2 inh inhalation BID Qty: 10.7 12RF Discharge Instructions Instructions: Cholecystectomy, Laparoscopic Surgery Additional Instructions: Tray, it was great seeing you today, and hope you make a quick and uneventful recovery as you transition home. We were able to remove your gallbladder with a camera just as we planned beforehand. Nothing was out of the ordinary. Your gallbladder was quite shrunken, and appeared consistent with biliary dyskinesia as diagnosed on your HIDA scan. Hopefully this will get you feeling better over the long run. You will see that you have a few Band-Aids over the incisions on your abdomen. If the Band-Aids become saturated, you can replace them at any point today. If they stay dry, then you should remove them tomorrow in the shower. Wash all of the incisions with warm soapy water. If you prefer to cover them with new Band- Aids, that is fine. Alternatively, if they are not bothering you, they can be left open to air starting tomorrow. Similar to your hernia surgery, you may get some bruising over the incisions. It is nothing to worry about. You can use ice packs over any area where you have discomfort. In addition to Tylenol and ibuprofen, I will put in another prescription for some tramadol that you can use if you need it. You should be up and moving around as you get home. Walk to the bathroom, or to the kitchen if you need to drink of water. Be careful when you go outside. The biggest issue at this time of year is when patient slipped on the ice. Keep the lifting around a gallon of milk for the next few days. Assuming you are feeling well at that point, you could slowly increase it back up to normal. Avoid any vigorous shoveling of snow, or any activity that significantly increases pressure in your belly, or quite a bit of twisting around your core. Like I said, I think you will be comfortable picking up your son beginning next week. Just be careful with your lower back and lift using your legs. You are welcome to eat and drink what ever you like as you get home. Some patients will experience a little bit of diarrhea after having her gallbladder removed. If that is the case, then you should cut all of the fat out of your diet for the next few weeks, and we will slowly start reintroducing it over the next month or so. Honestly, I do not think you will experience that, but it is something to be mindful of If you need anything at all, please feel free to call me at [phone]. Otherwise, we will see you in the office on the Stand Alone Forms: Portal Information Referrals: Nathaniel Zamudio MD [ [facility] STAFF PHYSICIAN, Surgery] - 07/19/25 8:30 am Activity:: No heavy lifting Remove Dressings/Wound Care:: 24 hours Shower/Bathe:: 24 hours Diet:: As Tolerated Discharge Orders Discharge Orders: Discharge Order (Routine); Ordered 07/06/25 Ordered By: Nathaniel Zamudio DS: Diagnosis Discharge Diagnosis (1) Biliary dyskinesia: Status: Acute Asessment and Plan: Postoperative follow-up
[2025-07-06] MEDS: ceFAZolin 2 GM/50 ML BAG IVPB (07:45)
[2025-07-06] MEDS: Bupivacaine 0.25% Pres-Free W/EPI 30 ML VIAL (08:13)
--- NOTE | 2025-07-06 09:00 | GB_PTH ---
PATIENT: Dallas Aviles LOC: [facility] U#:[id number] AGE/SX: 35/M ROOM: RE07/06/[address]: Nathaniel Zamudio MD : 1990 BED: DIS: 07/06/2025 SPEC #: [id number] RECD: 07/06/25 12:51 STATUS: RICHIE REKyle #: [id number] RAJWINDER: 07/06/25 09:[address]: Nathaniel Zamudio DEPT: Surgical Specimen RECD BY: Michelle Granados ENTERED: 07/06/25 12:51 SP TYPE: GB CHAIM DR: Yadira Heller APRN Tissues: 1 - GALLBLADDER Procedures: GROSS AND MICRO LEVEL 3 Comments: [id number]
--- NOTE | 2025-07-06 09:18 | W.PM.OP ---
Operative Note Operative Note PRE-OP DIAGNOSIS: Biliary dyskinesia POST-OP DIAGNOSIS: same PROCEDURE: Laparoscopic cholecystectomy SURGEON: Nathaniel Zamudio SCHOOL LABORATORY TECHNICIAN: Michell Valdez ANESTHESIA TYPE: General LMA/ETT Refer to Anesthesia Record ESTIMATED BLOOD LOSS: 25 PATHOLOGY: other (Gallbladder) COMPLICATIONS: None Patient was transported to: PACU Patient's condition: stable Indications: Tray is a 35-year-old male with biliary dyskinesia as evidenced by a gallbladder ejection fraction around 7 Procedure Description: After satisfactory induction of general anesthesia, I prepped and draped the abdomen in usual fashion. Next, I began with a periumbilical incision. Using a 5 mm optical viewing port, establish pneumoperitoneum. I then insufflated the peritoneal cavity. I then placed the patient in some reverse Trendelenburg and left side down positioning. I inserted another 5 mm port in the right anterior axillary line. The camera was moved to this position, and the umbilical port was upsized to 12 mm. Another 5 mm port was added in the mid epigastrium, and another in the right mid abdomen. I then grasped the gallbladder fundus and elevated cephalad. I began by dissecting the gallbladder infundibulum. With the assistance of indocyanine green, I worked in a lateral to medial fashion. Once I skeletonized the cystic duct and cystic artery, with a satisfactory critical view of safety, I doubly clipped and divided them. I then used electrocautery to dissect the gallbladder off the gallbladder fossa. I passed the gallbladder into an Endo Catch bag and removed it by way of the umbilical site. I examined the surgical field. It was hemostatic. The umbilical port was removed, and a Marino Vazquez wound closure device was used to reapproximate the fascia here. The right anterior axillary line port was removed, as was the mid epigastric port. These were hemostatic. The pneumoperitoneum was all released, the remaining 5 mm port was removed. Skin and subcutaneous tissues were closed with absorbable suture. Bandages were applied, Tray was extubated, and transferred to the recovery unit. Date of Procedure: 07/06/25
[2025-07-06] MEDS: traMADol 50 MG TAB PO (10:01)
--- NOTE | 2025-07-06 10:57 | W.ANESPOSTOP ---
Postoperative Evaluation Date, Time and Location Date Performed: 07/06/25 Time Performed: 10:57 Patient Location: Day Surgery Unit Vital Signs Most Recent Imported Vital Signs: Most Recent Vital Signs Temp Pulse Resp BP Pulse Ox 36.3 C L 53 L 14 100/36 L 100 07/06/25 10:21 07/06/25 10:21 07/06/25 10:21 07/06/25 10:21 07/06/25 10:21 Pain Score Most Recent Pain Score: Most Recent Pain Score Pain Level 5 07/06/25 10:21 Assessment Mental Status: Awake (Alert & Oriented to Patient Baseline) Airway and Respiratory Function: Patent airway with normal (patient baseline) respiratory exam Cardiovascular Function: Hemodynamically Stable Hydration Status: Adequately Hydrated Nausea & Vomiting: No Nausea or Vomiting Pain: Pain is tolerable per patient Peripheral Nerve Block: Patient did not receive a nerve block
== END 2025-07-06 11:10 | disposition home or self-care (01) ==
PROVIDERS: PCP Nurse Practitioner Adult Health; Visit Provider Surgery
PROC: 0FT44ZZ Resection of Gallbladder, Percutaneous Endoscopic Approach (ICD-10-PCS; CPT 47562; principal; 2025-07-06 07:30)
DX: K80.10 Calculus of gallbladder with chronic cholecystitis without obstruction (principal); K76.0 Fatty (change of) liver, not elsewhere classified; I73.00 Raynaud's syndrome without gangrene
CPT/HCPCS: 47562; 88304; J0690; J1100; J1171; J2003; J2250; J2371; J2405; J2704; J3010; J3475